=== PATIENT | female | born 1940 | race Caucasian/White ===

== ENCOUNTER 2021-04-22 10:39 | Observation (INO) ==
--- NOTE | 2021-04-22 11:33 | Cat Scan Report ---
INDICATION: alter mental status COMPARISON: Previous examination dated 04/19/2021 TECHNIQUE: Axial noncontrast-enhanced images through the brain. Sagittally and coronally reformatted images. FINDINGS: Cerebral hemispheres:Negative. No intra-axial abnormality. No intra-axial hematoma. No localized mass effect.Brain volume is within normal limits for age. Periventricular white matter is unremarkable and within normal limits for age Brainstem and cerebellum:No intra-axial abnormality Extra-axial:No acute hemorrhage. No subdural or epidural hematoma. No subarachnoid hemorrhage. Basilar cisterns are normal Calvarial:No calvarial fracture. No lytic lesion Temporal bones are negative. No destructive lesions Soft tissue, orbits, sinuses:Orbits and visualized facial soft tissues and paranasal sinuses are negative IMPRESSION: 1. Negative noncontrast enhanced brain CT scan 2. No interval change since 04/19/2021 The exam was performed using radiation dose optimization techniques including, but not limited to, automated exposure control, adjustment of the mA and/or kV according to patient size and use of iterative reconstruction technique. Interpreted and Authenticated by: Vimal Troy 04/22/21
--- NOTE | 2021-04-22 11:57 | Emergency Department Note ---
Altered Mental Status HPI General Chief Complaint: Altered Mental Status Stated Complaint: dementia Time Seen by Provider: 04/22/21 10:56 Source: family Mode of arrival: ambulatory Limitations: altered mental status History of Present Illness HPI Narrative: Narrative: 81 yo F w/ h/o HTN, and recent Dx of COVID19 and UTI p/w ALOC. I saw this patient a few days ago. She presented for ALOC at that time, and had unfortunately just suffered through the of her . She was being cared for by her son who lives in the house, and who had come down w/ COVID. At that time she was Dx'd w/ COVID19, however family did not want any Tx for that such as MAB Tx. She was also Dx'd w/ a UTI. We considered placement vs discharge w/ family. Family arrived and did not want placement and reported that they would be able to take care of her at home. At this time she presents w/ family (unclear who, they are not here w/ her) reporting that her son is not caring for her, she is not eating/drinking, and she has been driving around looking for her . The RN states that it seems that she has only had one dose of abx since leaving the ED. [place] family has already stated to the RN that they do not want her admitted as they think the government will accuse them of not taking care of them. A family member is on the way here from out of town and should arrive later this afternoon. The patient herself has no complaints other than bereavement. Related Data Previous Rx's Medication Instructions Recorded propranolol 10 mg tablet 10 mg PO TID #90 tab 04/14/21 cephalexin 500 mg capsule 500 mg PO BID #14 cap 04/19/21 lorazepam 0.5 mg tablet 0.5 mg PO TID PRN #20 tab 04/21/21 Allergies Allergy/AdvReac Type Severity Reaction Status Date / Time levofloxacin [From Levaquin] Allergy Unknown Unknown Verified 04/19/21 05:27 morphine Allergy Unknown Unknown Verified 04/19/21 05:27 hydrocodone AdvReac Vomiting Verified 04/19/21 05:27 meperidine [From Demerol] AdvReac Vomiting Verified 04/19/21 05:27 oxycodone [Oxycodone] AdvReac Vomiting Verified 04/19/21 05:27 Review of Systems ROS ROS Narrative: Narrative: All systems ED: reviewed and negative except as stated. [facility] Narrative Patient History Narrative: Narrative: Medical/Surgical/Family History All Active Problems (Updated 04/22/21 @ 16:48 by Magdy Crawford MD) Carotid body tumor (Acute) Acute UTI (Acute) COVID-19 (Acute) Generalized weakness (Acute) Acute delirium (Acute) Acute UTI (Acute) Grieving (Acute) COVID (Acute) COVID-19 (Acute) Medicare annual wellness visit, initial (Acute) Rash (Acute) UTI (urinary tract infection) (Acute) Acute diarrhea (Acute) UTI (urinary tract infection) (Acute) Urinary tract infection (Acute) Dilated bile duct (Acute) Side effect of medication (Acute) Nausea (Acute) S/P tooth extraction (Acute) Heart murmur (Acute) Gastritis (Acute) Leg pain, central (Acute) GERD (gastroesophageal reflux disease) (Acute) Pain in left lower leg (Acute) Left hip pain (Acute) Leg pain (Acute) Sciatica (Acute) Epistaxis (Acute) Dementia (Acute) Epistaxis, recurrent (Acute) Gastroenteritis (Acute) Cough (Acute) Neck mass (Acute) Diarrhea (Acute) Abdominal pain (Acute) Melena (Acute) Systolic murmur (Acute) Frequent urination (Chronic) Headache (Acute) Hypertensive urgency (Acute) Migraine headache (Chronic) Confusion (Chronic) Sinusitis, acute (Acute) Tonsillitis and adenoiditis, chronic (Chronic) Impacted cerumen (Chronic) Rhinitis, allergic (Chronic) Depression (Chronic) Urinary incontinence, urge (Chronic 10/31/12) Urinary incontinence (Chronic) Overactive bladder (Chronic 10/31/12) Incomplete bladder emptying (Chronic) Hypertonicity of bladder (Chronic) Essential hypertension (Chronic) Cystocele, midline (Chronic) Migraine (Chronic) Chronic headache (Chronic) Medical History Chronic headache Cystocele, midline Depression Essential hypertension Frequent urination Gallbladder problem removed Gastroenteritis Headache Hypertensive urgency Incomplete bladder emptying Medicare annual wellness visit, initial Migraine headache Overactive bladder (10/31/12) Rhinitis, allergic Tonsillitis and adenoiditis, chronic Urinary incontinence Surgical History History of appendectomy History of bladder surgery Bladder sling History of cholecystectomy History of hysterectomy Status post surgery Cystocele repair Family History Mother Arthritis Sister Migraine Father Malignant neoplasm of prostate Social History Smoking Status: Never smoker Alcohol Intake Frequency: does not drink Substance Use: does not use Exam Narrative Narrative: Narrative: General Limitations: altered mental status General appearance: Present alert and in no apparent distress Head Head: Present atraumatic and normocephalic Eye Eye: Present normal appearance ENT ENT: Present normal oropharynx and mucous membranes dry Chest Chest: Present normal inspection and symmetric chest wall rise Respiratory Respiratory: Present normal lung sounds bilaterally; Absent respiratory distress, rales/crackles, wheezes or stridor Cardiovascular Cardiovascular: Present regular rate, normal rhythm, +S1, +S2 and other (2+ B/L radial pulses); Absent systolic murmur or diastolic murmur Adbominal Abdominal: Present soft and normal bowel sounds; Absent distention or tenderness Extremities Extremities: Absent pedal edema Neurological Neurological: Present alert and oriented X3 Psychiatric Psychiatric: Present normal affect and normal mood Skin Skin: Present warm (WNL) and dry Course Vital Signs Vital signs: Vital Signs Temperature 98.9 F 04/22/21 10:41 Pulse Rate 78 04/22/21 10:41 Respiratory Rate 16 04/22/21 10:41 Blood Pressure 148/71 04/22/21 10:41 Pulse Oximetry (%) 96 04/22/21 10:41 Temperature 98.9 F 04/22/21 10:41 Pulse Rate 70 04/22/21 13:36 Respiratory Rate 18 04/22/21 13:36 Blood Pressure 118/90 04/22/21 15:02 Pulse Oximetry (%) 91 04/22/21 14:32 MDM MDM Narrative Medical decision making narrative: Narrative: 81 yo F w/ h/o COVID19 and UTI Dx a few days ago, along w/ bereavement d/t the recent of her , and h/o HTN, p/w ALOC. DDx - CVA, infectious process, metabolic/electrolyte d/o, endocrine d/o Pt presented clinically stable, in NAD. She had no focal deficits on exam and CVA was unlikely. To be thorough I did check a CT head which was also negative. She had no fever, leukocytosis, and a normal lactate. Her repeat UA showed no UTI. While she had apparently been off of abx, she had not progressed to sepsis from her UTI. There was no evidence of complication from COVID. Her CMP showed no serious metabolic/electrolyte d/o. Her CBC did show anemia, but hemoccult was negative and there was no evidence of active bleeding. TSH was WNL. Overall evaluation was c/w dementia, likely worsened by combination of bereavement, UTI and COVID19. I did not see an indication for hospitalization. Case management was able to discuss further w/ the family. They had misunderstood and thought that she was at risk of being permanently institutionalized for some reason. At this time a cousin is en route from [place], and will be staying in the house w/ her to care for her. They will also be working on removing the son from the home. At this time DC home is re asonable pending arrival of the family member. I have signed pt out to the night physician pending family member arrival. Lab Data Result diagrams: 04/22/21 11:37 04/22/21 11:37 Labs: Lab Results 04/22/21 04/22/21 04/22/21 Range/Units 11:37 11:37 11:37 WBC 4.4 L (4.5-11.0) K/mcL RBC 2.99 L (3.59-5.38) M/mcL Hgb 8.4 L (11.2-15.7) g/dL Hct 25.0 L (34.1-44.9) % MCV 83.6 (80.0-100.0) fL MCH 28.1 (26.0-34.0) pg MCHC 33.6 (31.0-36.0) g/dL RDW 15.1 H (11.5-14.5) % Plt Count 185 (140-440) K/mcL MPV 10.4 (7.4-10.4) fL Neut % (Auto) 52.7 (38.0-78.0) % Lymph % (Auto) 32.6 (15.5-49.0) % [place] % (Auto) 13.8 H (1.0-12.0) % Eos % (Auto) 0.7 (0.0-7.0) % Baso % (Auto) 0.2 (0.0-2.0) % Lymph # (Auto) 1.42 L (1.50-4.80) K/mcL [place] # (Auto) 0.60 (0.10-0.90) K/mcL Eos # (Auto) 0.03 (0.00-0.70) K/mcL Baso # (Auto) 0.01 (0.00-0.30) K/mcL Absolute Neutrophils 2.30 (1.80-8.00) K/mcL VBG Lactic Acid (0.5-2.0) mmol/L Sodium 133 (133-145) mmol/L Potassium 3.2 L (3.3-5.1) mmol/L Chloride 96 (96-108) mmol/L Carbon Dioxide 23 (22-30) mmol/L Anion Gap 14.0 (8.0-16.0) BUN 12 (8-23) mg/dL Creatinine 1.0 (0.6-1.1) mg/dL GFR Calculation 52 Glucose 103 (70-105) mg/dL Calcium 8.3 L (8.6-10.4) mg/dL Total Bilirubin 0.7 (0.1-1.0) mg/dL AST 20 (<32) U/L ALT 16 (<40) U/L Alkaline Phosphatase 69 (39-117) U/L Ammonia (11-51) umol/L Total Creatine Kinase 196 H (24-170) U/L Troponin T 0.02 (<0.03) ng/mL Total Protein 7.3 (5.9-8.4) gm/dL Albumin 3.9 (3.2-5.2) gm/dL Globulin 3.4 (2.2-3.7) gm/dL Albumin/Globulin Ratio 1.1 (1.0-2.3) TSH (0.27-5.01) uIU/mL Thyroxine (T4) (5.0-12.0) ug/dl Urine Color Urine Appearance (Clear) Urine pH (5.0-9.0) Ur Specific [place] (1.000-1.035) Urine Protein (Negative) mg/dL Urine Glucose (UA) (Negative) mg/dL Urine Ketones (Negative) mg/dL Urine Occult Blood (Negative) mg/dL Urine Nitrate (Negative) Urine Bilirubin (Negative) mg/dL Urine Urobilinogen mg/dL Ur Leukocyte Esterase (Negative) /uL Urine RBC (0-3) /hpf Urine WBC (0-4) /hpf Ur Squamous Epith Cells (0-4) /hpf Urine Bacteria (0) /hpf Urine Mucus (None) /hpf Ur Culture Indicated? Urine Opiates Screen Ur Opiates Confirm Ur Oxycodone Screen Urine Methadone Screen Ur Methadone Confirm Acetaminophen ug/mL Ur Barbiturates Screen Ur Barbiturate Confirm Ur Phencyclidine Scrn Urine PCP Confirm Ur Amphetamines Screen U Amphetamines Confirm U Benzodiazepines Scrn U Benzodiazepine Confm Urine Cocaine Screen Urine Cocaine Confirm U Cannabinoids Confirm U Marijuana (THC) Screen Ethyl Alcohol 04/22/21 04/22/21 04/22/21 Range/Units 11:37 11:37 11:37 WBC (4.5-11.0) K/mcL RBC (3.59-5.38) M/mcL Hgb (11.2-15.7) g/dL Hct (34.1-44.9) % MCV (80.0-100.0) fL MCH (26.0-34.0) pg MCHC (31.0-36.0) g/dL RDW (11.5-14.5) % Plt Count (140-440) K/mcL MPV (7.4-10.4) fL Neut % (Auto) (38.0-78.0) % Lymph % (Auto) (15.5-49.0) % [place] % (Auto) (1.0-12.0) % Eos % (Auto) (0.0-7.0) % Baso % (Auto) (0.0-2.0) % Lymph # (Auto) (1.50-4.80) K/mcL [place] # (Auto) (0.10-0.90) K/mcL Eos # (Auto) (0.00-0.70) K/mcL Baso # (Auto) (0.00-0.30) K/mcL Absolute Neutrophils (1.80-8.00) K/mcL VBG Lactic Acid (0.5-2.0) mmol/L Sodium (133-145) mmol/L Potassium (3.3-5.1) mmol/L Chloride (96-108) mmol/L Carbon Dioxide (22-30) mmol/L Anion Gap (8.0-16.0) BUN (8-23) mg/dL Creatinine (0.6-1.1) mg/dL GFR Calculation Glucose (70-105) mg/dL Calcium (8.6-10.4) mg/dL Total Bilirubin (0.1-1.0) mg/dL AST (<32) U/L ALT (<40) U/L Alkaline Phosphatase (39-117) U/L Ammonia (11-51) umol/L Total Creatine Kinase (24-170) U/L Troponin T (<0.03) ng/mL Total Protein (5.9-8.4) gm/dL Albumin (3.2-5.2) gm/dL Globulin (2.2-3.7) gm/dL Albumin/Globulin Ratio (1.0-2.3) TSH 0.96 (0.27-5.01) uIU/mL Thyroxine (T4) 6.5 (5.0-12.0) ug/dl Urine Color Urine Appearance (Clear) Urine pH (5.0-9.0) Ur Specific [place] (1.000-1.035) Urine Protein (Negative) mg/dL Urine Glucose (UA) (Negative) mg/dL Urine Ketones (Negative) mg/dL Urine Occult Blood (Negative) mg/dL Urine Nitrate (Negative) Urine Bilirubin (Negative) mg/dL Urine Urobilinogen mg/dL Ur Leukocyte Esterase (Negative) /uL Urine RBC (0-3) /hpf Urine WBC (0-4) /hpf Ur Squamous Epith Cells (0-4) /hpf Urine Bacteria (0) /hpf Urine Mucus (None) /hpf Ur Culture Indicated? Urine Opiates Screen Ur Opiates Confirm Ur Oxycodone Screen Urine Methadone Screen Ur Methadone Confirm Acetaminophen < 5.0 ug/mL Ur Barbiturates Screen Ur Barbiturate Confirm Ur Phencyclidine Scrn Urine PCP Confirm Ur Amphetamines Screen U Amphetamines Confirm U Benzodiazepines Scrn U Benzodiazepine Confm Urine Cocaine Screen Urine Cocaine Confirm U Cannabinoids Confirm U Marijuana (THC) Screen Ethyl Alcohol Cancelled < 0.010 04/22/21 04/22/21 04/22/21 Range/Units 12:15 12:15 12:35 WBC (4.5-11.0) K/mcL RBC (3.59-5.38) M/mcL Hgb (11.2-15.7) g/dL Hct (34.1-44.9) % MCV (80.0-100.0) fL MCH (26.0-34.0) pg MCHC (31.0-36.0) g/dL RDW (11.5-14.5) % Plt Count (140-440) K/mcL MPV (7.4-10.4) fL Neut % (Auto) (38.0-78.0) % Lymph % (Auto) (15.5-49.0) % [place] % (Auto) (1.0-12.0) % Eos % (Auto) (0.0-7.0) % Baso % (Auto) (0.0-2.0) % Lymph # (Auto) (1.50-4.80) K/mcL [place] # (Auto) (0.10-0.90) K/mcL Eos # (Auto) (0.00-0.70) K/mcL Baso # (Auto) (0.00-0.30) K/mcL Absolute Neutrophils (1.80-8.00) K/mcL VBG Lactic Acid 1.0 (0.5-2.0) mmol/L Sodium (133-145) mmol/L Potassium (3.3-5.1) mmol/L Chloride (96-108) mmol/L Carbon Dioxide (22-30) mmol/L Anion Gap (8.0-16.0) BUN (8-23) mg/dL Creatinine (0.6-1.1) mg/dL GFR Calculation Glucose (70-105) mg/dL Calcium (8.6-10.4) mg/dL Total Bilirubin (0.1-1.0) mg/dL AST (<32) U/L ALT (<40) U/L Alkaline Phosphatase (39-117) U/L Ammonia (11-51) umol/L Total Creatine Kinase (24-170) U/L Troponin T (<0.03) ng/mL Total Protein (5.9-8.4) gm/dL Albumin (3.2-5.2) gm/dL Globulin (2.2-3.7) gm/dL Albumin/Globulin Ratio (1.0-2.3) TSH (0.27-5.01) uIU/mL Thyroxine (T4) (5.0-12.0) ug/dl Urine Color Yellow Urine Appearance Clear (Clear) Urine pH 6.0 (5.0-9.0) Ur Specific [place] 1.012 (1.000-1.035) Urine Protein 30 A (Negative) mg/dL Urine Glucose (UA) Negative (Negative) mg/dL Urine Ketones Negative (Negative) mg/dL Urine Occult Blood Negative (Negative) mg/dL Urine Nitrate Negative (Negative) Urine Bilirubin Negative (Negative) mg/dL Urine Urobilinogen Negative mg/dL Ur Leukocyte Esterase Negative (Negative) /uL Urine RBC 0 (0-3) /hpf Urine WBC 1 (0-4) /hpf Ur Squamous Epith Cells 4 (0-4) /hpf Urine Bacteria None (0) /hpf Urine Mucus Few A (None) /hpf Ur Culture Indicated? No Urine Opiates Screen None detected Ur Opiates Confirm TNP Ur Oxycodone Screen None detected Urine Methadone Screen None detected Ur Methadone Confirm TNP Acetaminophen ug/mL Ur Barbiturates Screen None detected Ur Barbiturate Confirm TNP Ur Phencyclidine Scrn None detected Urine PCP Confirm TNP Ur Amphetamines Screen None detected U Amphetamines Confirm TNP U Benzodiazepines Scrn None detected U Benzodiazepine Confm TNP Urine Cocaine Screen None detected Urine Cocaine Confirm TNP U Cannabinoids Confirm TNP U Marijuana (THC) Screen None detected Ethyl Alcohol 04/22/21 Range/Units 12:35 WBC (4.5-11.0) K/mcL RBC (3.59-5.38) M/mcL Hgb (11.2-15.7) g/dL Hct (34.1-44.9) % MCV (80.0-100.0) fL MCH (26.0-34.0) pg MCHC (31.0-36.0) g/dL RDW (11.5-14.5) % Plt Count (140-440) K/mcL MPV (7.4-10.4) fL Neut % (Auto) (38.0-78.0) % Lymph % (Auto) (15.5-49.0) % [place] % (Auto) (1.0-12.0) % Eos % (Auto) (0.0-7.0) % Baso % (Auto) (0.0-2.0) % Lymph # (Auto) (1.50-4.80) K/mcL [place] # (Auto) (0.10-0.90) K/mcL Eos # (Auto) (0.00-0.70) K/mcL Baso # (Auto) (0.00-0.30) K/mcL Absolute Neutrophils (1.80-8.00) K/mcL VBG Lactic Acid (0.5-2.0) mmol/L Sodium (133-145) mmol/L Potassium (3.3-5.1) mmol/L Chloride (96-108) mmol/L Carbon Dioxide (22-30) mmol/L Anion Gap (8.0-16.0) BUN (8-23) mg/dL Creatinine (0.6-1.1) mg/dL GFR Calculation Glucose (70-105) mg/dL Calcium (8.6-10.4) mg/dL Total Bilirubin (0.1-1.0) mg/dL AST (<32) U/L ALT (<40) U/L Alkaline Phosphatase (39-117) U/L Ammonia 14 (11-51) umol/L Total Creatine Kinase (24-170) U/L Troponin T (<0.03) ng/mL Total Protein (5.9-8.4) gm/dL Albumin (3.2-5.2) gm/dL Globulin (2.2-3.7) gm/dL Albumin/Globulin Ratio (1.0-2.3) TSH (0.27-5.01) uIU/mL Thyroxine (T4) (5.0-12.0) ug/dl Urine Color Urine Appearance (Clear) Urine pH (5.0-9.0) Ur Specific [place] (1.000-1.035) Urine Protein (Negative) mg/dL Urine Glucose (UA) (Negative) mg/dL Urine Ketones (Negative) mg/dL Urine Occult Blood (Negative) mg/dL Urine Nitrate (Negative) Urine Bilirubin (Negative) mg/dL Urine Urobilinogen mg/dL Ur Leukocyte Esterase (Negative) /uL Urine RBC (0-3) /hpf Urine WBC (0-4) /hpf Ur Squamous Epith Cells (0-4) /hpf Urine Bacteria (0) /hpf Urine Mucus (None) /hpf Ur Culture Indicated? Urine Opiates Screen Ur Opiates Confirm Ur Oxycodone Screen Urine Methadone Screen Ur Methadone Confirm Acetaminophen ug/mL Ur Barbiturates Screen Ur Barbiturate Confirm Ur Phencyclidine Scrn Urine PCP Confirm Ur Amphetamines Screen U Amphetamines Confirm U Benzodiazepines Scrn U Benzodiazepine Confm Urine Cocaine Screen Urine Cocaine Confirm U Cannabinoids Confirm U Marijuana (THC) Screen Ethyl Alcohol EKG Data EKG #1: EKG attestation: Yes I reviewed and interpreted this EKG. and Yes There are no EKG findings of acute coronary syndrome EKG results narrative: Sinus bradycardia w/ rate of 59. Normal RI. QRS 146, QT 508, QTc 504. No STEMI. RBBB present, new from previous EKG in 2019. Discharge Plan Patient/Caregiver Discharge Instructions Pt seen by CROWN BLOCKER/PA only: No Clinical Impression: Acute delirium, Acute UTI, Grieving, COVID, COVID-19 Activity: resume usual activities as tolerated Instructions: COVID-19, Grief and Loss (ED), Acute Delirium (ED), Urinary Tract Infection in Older Adults (ED) Activity Restrictions/Additional Instructions: Thank you for coming to the ER today. You have been seen for confusion. At this time there is no evidence of an emergency that would require admission to the hospital. You can go home in the care of your family. If you have any new, changing, or worsening symptoms, please return to the ER. Otherwise please continue to self isolate, and please continue your antibiotics. Please see your PCP by phone or video in the next 2-3 days. Patient Disposition: Still a Patient Condition: Fair Follow up with: Titi Costello PA-C [Primary Care Provider] - Prescriptions: No Action propranolol 10 mg tablet 10 mg PO TID Qty: 90 3RF lorazepam 0.5 mg tablet 0.5 mg PO TID PRN (Reason: anxiety) Qty: 20 0RF cephalexin 500 mg capsule 500 mg PO BID Qty: 14 0RF
[2021-04-22 12:55] LABS: Basophils # (Auto) 0.01 K/mcL (0.00-0.30); Basophils % (Auto) 0.2 % (0.0-2.0); Eosinophils # (Auto) 0.03 K/mcL (0.00-0.70); Eosinophils % (Auto) 0.7 % (0.0-7.0); Hemoglobin 8.4 g/dL (11.2-15.7); Lymphocytes # (Auto) 1.42 K/mcL (1.50-4.80); Lymphocytes % (Auto) 32.6 % (15.5-49.0); Mean Cell Volume 83.6 fL (80.0-100.0); Mean Corpuscular HGB Conc 33.6 g/dL (31.0-36.0); Mean Platelet Volume 10.4 fL (7.4-10.4); Monocytes % (Auto) 13.8 % (1.0-12.0); Neutrophils % (Auto) 52.7 % (38.0-78.0); Platelet Count 185 K/mcL (140-440); RBC 2.99 M/mcL (3.59-5.38); Red Cell Distribution Width 15.1 % (11.5-14.5); WBC 4.4 K/mcL (4.5-11.0)
[2021-04-22 13:12] LABS: ALT/SGPT 16 U/L (<40); AST/SGOT 20 U/L (<32); Albumin 3.9 gm/dL (3.2-5.2); Albumin/Globulin Ratio 1.1 (1.0-2.3); Alkaline Phosphatase 69 U/L (39-117); Bilirubin,Total 0.7 mg/dL (0.1-1.0); Blood Urea Nitrogen 12 mg/dL (8-23); Calcium 8.3 mg/dL (8.6-10.4); Carbon Dioxide 23 mmol/L (22-30); Chloride 96 mmol/L (96-108); Creatine Kinase 196 U/L (24-170); Globulin 3.4 gm/dL (2.2-3.7); Glomerular Filtration Rate 52; Glucose 103 mg/dL (70-105)
[2021-04-22 13:13] LABS: Acetaminophen < 5.0 ug/mL
[2021-04-22 13:15] LABS: Alcohol, Blood < 10.0 mg/dL; Alcohol,Blood < 0.010 gm/dL (<0.010)
[2021-04-22 13:24] LABS: T4 (Thyroxine) 6.5 ug/dl (5.0-12.0); Thyroid Stimulating Hormone 0.96 uIU/mL (0.27-5.01)
[2021-04-22 15:38] LABS: Amphetamine Screen,Urine None detected; Barbiturate Screen,Urine None detected; Benzodiazepines Screen,Urine None detected; Cannabinoid Screen,Urine None detected; Cocaine Screen,Urine None detected; Opiate Screen,Urine None detected; Oxycodone, Urine Screen None detected; Phencyclidine Screen,Urine None detected
[2021-04-22 15:46] LABS: Appearance,Urine CLEAR (Clear); Bilirubin,Urine Negative (Negative); Color,Urine YELLOW; Culture Indicated,Urine No; Glucose,Urine (UA) Negative (Negative); Ketones,Urine Negative (Negative); Leukocyte Esterase,Urine Negative /uL (Negative); Mucus,Urine FEW /hpf; Nitrate,Urine Negative (Negative); Protein,Urine 30 mg/dL (Negative); Specific Gravity,Urine 1.012 (1.000-1.035); Urine Blood Negative (Negative); Urine RBC 0 /hpf (0-3); Urine Squamous Epithelial Cell 4 /hpf (0-4); Urine WBC 1 /hpf (0-4); Urobilinogen,Urine Negative
[2021-04-22] MEDS ORDERED: LORazepam (PP) 1 MG TABLET (#4) PO ONE (17:23)
[2021-04-22] MEDS ORDERED: LORazepam 1 MG TABLET PO ONE ×2 (17:36→20:15)
[2021-04-22] MEDS ORDERED: CEPHALEXIN 250 MG CAPSULE PO ONE (20:10)
[2021-04-22] MEDS ORDERED: LORazepam 0.5 MG TABLET PO ONE (20:11)
[2021-04-22] MEDS ORDERED: DONEPEZIL 5 MG TABLET PO SCH (21:00)
--- NOTE | 2021-04-22 21:59 | Emergency Department Note ---
HPI General Chief complaint: Altered Mental Status Stated complaint: dementia Time Seen by Provider: 04/22/21 10:56 Source: family Mode of arrival: ambulatory Limitations: altered mental status History of Present Illness HPI Narrative: Narrative: Related Data Previous Rx's Medication Instructions Recorded propranolol 10 mg tablet 10 mg PO TID #90 tab 04/14/21 cephalexin 500 mg capsule 500 mg PO BID #14 cap 04/19/21 lorazepam 0.5 mg tablet 0.5 mg PO TID PRN #20 tab 04/21/21 Allergies Allergy/AdvReac Type Severity Reaction Status Date / Time levofloxacin [From Levaquin] Allergy Unknown Unknown Verified 04/19/21 05:27 morphine Allergy Unknown Unknown Verified 04/19/21 05:27 hydrocodone AdvReac Vomiting Verified 04/19/21 05:27 meperidine [From Demerol] AdvReac Vomiting Verified 04/19/21 05:27 oxycodone [Oxycodone] AdvReac Vomiting Verified 04/19/21 05:27 Review of Systems ROS ROS Narrative: Narrative: [facility] Narrative Patient History Narrative: Narrative: Medical/Surgical/Family History All Active Problems (Updated 04/22/21 @ 22:45 by Colton Pena MD) Anemia, normocytic normochromic (Acute) Hypokalemia (Acute) Alzheimer disease (Acute) Asymptomatic COVID-19 virus infection (Acute) Carotid body tumor (Acute) Acute UTI (Acute) COVID-19 (Acute) Generalized weakness (Acute) Acute delirium (Acute) Acute UTI (Acute) Grieving (Acute) COVID (Acute) COVID-19 (Acute) Medicare annual wellness visit, initial (Acute) Rash (Acute) UTI (urinary tract infection) (Acute) Acute diarrhea (Acute) UTI (urinary tract infection) (Acute) Urinary tract infection (Acute) Dilated bile duct (Acute) Side effect of medication (Acute) Nausea (Acute) S/P tooth extraction (Acute) Heart murmur (Acute) Gastritis (Acute) Leg pain, central (Acute) GERD (gastroesophageal reflux disease) (Acute) Pain in left lower leg (Acute) Left hip pain (Acute) Leg pain (Acute) Sciatica (Acute) Epistaxis (Acute) Dementia (Acute) Epistaxis, recurrent (Acute) Gastroenteritis (Acute) Cough (Acute) Neck mass (Acute) Diarrhea (Acute) Abdominal pain (Acute) Melena (Acute) Systolic murmur (Acute) Frequent urination (Chronic) Headache (Acute) Hypertensive urgency (Acute) Migraine headache (Chronic) Confusion (Chronic) Sinusitis, acute (Acute) Tonsillitis and adenoiditis, chronic (Chronic) Impacted cerumen (Chronic) Rhinitis, allergic (Chronic) Depression (Chronic) Urinary incontinence, urge (Chronic 10/31/12) Urinary incontinence (Chronic) Overactive bladder (Chronic 10/31/12) Incomplete bladder emptying (Chronic) Hypertonicity of bladder (Chronic) Essential hypertension (Chronic) Cystocele, midline (Chronic) Migraine (Chronic) Chronic headache (Chronic) Medical History Chronic headache Cystocele, midline Depression Essential hypertension Frequent urination Gallbladder problem removed Gastroenteritis Headache Hypertensive urgency Incomplete bladder emptying Medicare annual wellness visit, initial Migraine headache Overactive bladder (10/31/12) Rhinitis, allergic Tonsillitis and adenoiditis, chronic Urinary incontinence Surgical History History of appendectomy History of bladder surgery Bladder sling History of cholecystectomy History of hysterectomy Status post surgery Cystocele repair Family History Mother Arthritis Sister Migraine Father Malignant neoplasm of prostate Social History Smoking Status: Never smoker Alcohol Intake Frequency: does not drink Substance Use: does not use Exam Narrative Narrative: Narrative: General Limitations: altered mental status Course Vital Signs Vital signs: Vital Signs Temperature 98.9 F 04/22/21 10:41 Pulse Rate 78 04/22/21 10:41 Respiratory Rate 16 04/22/21 10:41 Blood Pressure 148/71 04/22/21 10:41 Pulse Oximetry (%) 96 04/22/21 10:41 Temperature 97.9 F 04/23/21 03:30 Pulse Rate 60 04/23/21 03:30 Respiratory Rate 18 04/23/21 03:30 Blood Pressure 161/88 04/23/21 03:30 Pulse Oximetry (%) 95 04/23/21 03:30 MDM MDM Narrative Medical decision making narrative: Narrative: Patient is a an 81-year-old female who presented with chief complaint of altered mental status. Patient was signed out to me by Dr. Crawford, and I agree with the work-up and plan thus far. Patient been seen here multiple times in the past 2 days for similar symptoms and including Covid positive and UTI. In brief patient was brought in again due to being found driving around aimlessly looking for her who just recently from [place]. She was supposed to be under the care of her son who is also Covid positive and does not appear to be taking care of her. She was not being given her antibiotics for urinary tract infection, and it sounded like other family members were very upset with the situation. Patient was held here throughout most of the day as family members from multiple places were attempted to come from multiple states to help several situation at home and take care of the patient. Unfortunately after approximately 11 hours all for members have called her stating that they would not be able to make it. The nearest one of them can potentially make it is potentially Sunday the earliest. Because of this, though the patient is stable with vital signs and overall physical exam appears to be unremarkable outside of her dementia/delirium, I do feel that she would benefit from admission to the hospital until patient can be placed appropriately into a safer living situation and continue to be treated for her urinary tract infection as well. I discussed case the hospitalist who agreed to the plan of admission at this time. Lab Data Result diagrams: 04/22/21 11:37 04/22/21 11:37 Labs: Lab Results 04/22/21 04/22/21 04/22/21 Range/Units 11:37 11:37 11:37 WBC 4.4 L (4.5-11.0) K/mcL RBC 2.99 L (3.59-5.38) M/mcL Hgb 8.4 L (11.2-15.7) g/dL Hct 25.0 L (34.1-44.9) % MCV 83.6 (80.0-100.0) fL MCH 28.1 (26.0-34.0) pg MCHC 33.6 (31.0-36.0) g/dL RDW 15.1 H (11.5-14.5) % Plt Count 185 (140-440) K/mcL MPV 10.4 (7.4-10.4) fL Neut % (Auto) 52.7 (38.0-78.0) % Lymph % (Auto) 32.6 (15.5-49.0) % [place] % (Auto) 13.8 H (1.0-12.0) % Eos % (Auto) 0.7 (0.0-7.0) % Baso % (Auto) 0.2 (0.0-2.0) % Lymph # (Auto) 1.42 L (1.50-4.80) K/mcL [place] # (Auto) 0.60 (0.10-0.90) K/mcL Eos # (Auto) 0.03 (0.00-0.70) K/mcL Baso # (Auto) 0.01 (0.00-0.30) K/mcL Absolute Neutrophils 2.30 (1.80-8.00) K/mcL VBG Lactic Acid (0.5-2.0) mmol/L Sodium 133 (133-145) mmol/L Potassium 3.2 L (3.3-5.1) mmol/L Chloride 96 (96-108) mmol/L Carbon Dioxide 23 (22-30) mmol/L Anion Gap 14.0 (8.0-16.0) BUN 12 (8-23) mg/dL Creatinine 1.0 (0.6-1.1) mg/dL GFR Calculation 52 Glucose 103 (70-105) mg/dL Calcium 8.3 L (8.6-10.4) mg/dL Total Bilirubin 0.7 (0.1-1.0) mg/dL AST 20 (<32) U/L ALT 16 (<40) U/L Alkaline Phosphatase 69 (39-117) U/L Ammonia (11-51) umol/L Total Creatine Kinase 196 H (24-170) U/L Troponin T 0.02 (<0.03) ng/mL Total Protein 7.3 (5.9-8.4) gm/dL Albumin 3.9 (3.2-5.2) gm/dL Globulin 3.4 (2.2-3.7) gm/dL Albumin/Globulin Ratio 1.1 (1.0-2.3) TSH (0.27-5.01) uIU/mL Thyroxine (T4) (5.0-12.0) ug/dl Urine Color Urine Appearance (Clear) Urine pH (5.0-9.0) Ur Specific [place] (1.000-1.035) Urine Protein (Negative) mg/dL Urine Glucose (UA) (Negative) mg/dL Urine Ketones (Negative) mg/dL Urine Occult Blood (Negative) mg/dL Urine Nitrate (Negative) Urine Bilirubin (Negative) mg/dL Urine Urobilinogen mg/dL Ur Leukocyte Esterase (Negative) /uL Urine RBC (0-3) /hpf Urine WBC (0-4) /hpf Ur Squamous Epith Cells (0-4) /hpf Urine Bacteria (0) /hpf Urine Mucus (None) /hpf Ur Culture Indicated? Urine Opiates Screen Ur Opiates Confirm Ur Oxycodone Screen Urine Methadone Screen Ur Methadone Confirm Acetaminophen ug/mL Ur Barbiturates Screen Ur Barbiturate Confirm Ur Phencyclidine Scrn Urine PCP Confirm Ur Amphetamines Screen U Amphetamines Confirm U Benzodiazepines Scrn U Benzodiazepine Confm Urine Cocaine Screen Urine Cocaine Confirm U Cannabinoids Confirm U Marijuana (THC) Screen Ethyl Alcohol 04/22/21 04/22/21 04/22/21 Range/Units 11:37 11:37 11:37 WBC (4.5-11.0) K/mcL RBC (3.59-5.38) M/mcL Hgb (11.2-15.7) g/dL Hct (34.1-44.9) % MCV (80.0-100.0) fL MCH (26.0-34.0) pg MCHC (31.0-36.0) g/dL RDW (11.5-14.5) % Plt Count (140-440) K/mcL MPV (7.4-10.4) fL Neut % (Auto) (38.0-78.0) % Lymph % (Auto) (15.5-49.0) % [place] % (Auto) (1.0-12.0) % Eos % (Auto) (0.0-7.0) % Baso % (Auto) (0.0-2.0) % Lymph # (Auto) (1.50-4.80) K/mcL [place] # (Auto) (0.10-0.90) K/mcL Eos # (Auto) (0.00-0.70) K/mcL Baso # (Auto) (0.00-0.30) K/mcL Absolute Neutrophils (1.80-8.00) K/mcL VBG Lactic Acid (0.5-2.0) mmol/L Sodium (133-145) mmol/L Potassium (3.3-5.1) mmol/L Chloride (96-108) mmol/L Carbon Dioxide (22-30) mmol/L Anion Gap (8.0-16.0) BUN (8-23) mg/dL Creatinine (0.6-1.1) mg/dL GFR Calculation Glucose (70-105) mg/dL Calcium (8.6-10.4) mg/dL Total Bilirubin (0.1-1.0) mg/dL AST (<32) U/L ALT (<40) U/L Alkaline Phosphatase (39-117) U/L Ammonia (11-51) umol/L Total Creatine Kinase (24-170) U/L Troponin T (<0.03) ng/mL Total Protein (5.9-8.4) gm/dL Albumin (3.2-5.2) gm/dL Globulin (2.2-3.7) gm/dL Albumin/Globulin Ratio (1.0-2.3) TSH 0.96 (0.27-5.01) uIU/mL Thyroxine (T4) 6.5 (5.0-12.0) ug/dl Urine Color Urine Appearance (Clear) Urine pH (5.0-9.0) Ur Specific [place] (1.000-1.035) Urine Protein (Negative) mg/dL Urine Glucose (UA) (Negative) mg/dL Urine Ketones (Negative) mg/dL Urine Occult Blood (Negative) mg/dL Urine Nitrate (Negative) Urine Bilirubin (Negative) mg/dL Urine Urobilinogen mg/dL Ur Leukocyte Esterase (Negative) /uL Urine RBC (0-3) /hpf Urine WBC (0-4) /hpf Ur Squamous Epith Cells (0-4) /hpf Urine Bacteria (0) /hpf Urine Mucus (None) /hpf Ur Culture Indicated? Urine Opiates Screen Ur Opiates Confirm Ur Oxycodone Screen Urine Methadone Screen Ur Methadone Confirm Acetaminophen < 5.0 ug/mL Ur Barbiturates Screen Ur Barbiturate Confirm Ur Phencyclidine Scrn Urine PCP Confirm Ur Amphetamines Screen U Amphetamines Confirm U Benzodiazepines Scrn U Benzodiazepine Confm Urine Cocaine Screen Urine Cocaine Confirm U Cannabinoids Confirm U Marijuana (THC) Screen Ethyl Alcohol Cancelled < 0.010 04/22/21 04/22/21 04/22/21 Range/Units 12:15 12:15 12:35 WBC (4.5-11.0) K/mcL RBC (3.59-5.38) M/mcL Hgb (11.2-15.7) g/dL Hct (34.1-44.9) % MCV (80.0-100.0) fL MCH (26.0-34.0) pg MCHC (31.0-36.0) g/dL RDW (11.5-14.5) % Plt Count (140-440) K/mcL MPV (7.4-10.4) fL Neut % (Auto) (38.0-78.0) % Lymph % (Auto) (15.5-49.0) % [place] % (Auto) (1.0-12.0) % Eos % (Auto) (0.0-7.0) % Baso % (Auto) (0.0-2.0) % Lymph # (Auto) (1.50-4.80) K/mcL [place] # (Auto) (0.10-0.90) K/mcL Eos # (Auto) (0.00-0.70) K/mcL Baso # (Auto) (0.00-0.30) K/mcL Absolute Neutrophils (1.80-8.00) K/mcL VBG Lactic Acid 1.0 (0.5-2.0) mmol/L Sodium (133-145) mmol/L Potassium (3.3-5.1) mmol/L Chloride (96-108) mmol/L Carbon Dioxide (22-30) mmol/L Anion Gap (8.0-16.0) BUN (8-23) mg/dL Creatinine (0.6-1.1) mg/dL GFR Calculation Glucose (70-105) mg/dL Calcium (8.6-10.4) mg/dL Total Bilirubin (0.1-1.0) mg/dL AST (<32) U/L ALT (<40) U/L Alkaline Phosphatase (39-117) U/L Ammonia (11-51) umol/L Total Creatine Kinase (24-170) U/L Troponin T (<0.03) ng/mL Total Protein (5.9-8.4) gm/dL Albumin (3.2-5.2) gm/dL Globulin (2.2-3.7) gm/dL Albumin/Globulin Ratio (1.0-2.3) TSH (0.27-5.01) uIU/mL Thyroxine (T4) (5.0-12.0) ug/dl Urine Color Yellow Urine Appearance Clear (Clear) Urine pH 6.0 (5.0-9.0) Ur Specific [place] 1.012 (1.000-1.035) Urine Protein 30 A (Negative) mg/dL Urine Glucose (UA) Negative (Negative) mg/dL Urine Ketones Negative (Negative) mg/dL Urine Occult Blood Negative (Negative) mg/dL Urine Nitrate Negative (Negative) Urine Bilirubin Negative (Negative) mg/dL Urine Urobilinogen Negative mg/dL Ur Leukocyte Esterase Negative (Negative) /uL Urine RBC 0 (0-3) /hpf Urine WBC 1 (0-4) /hpf Ur Squamous Epith Cells 4 (0-4) /hpf Urine Bacteria None (0) /hpf Urine Mucus Few A (None) /hpf Ur Culture Indicated? No Urine Opiates Screen None detected Ur Opiates Confirm TNP Ur Oxycodone Screen None detected Urine Methadone Screen None detected Ur Methadone Confirm TNP Acetaminophen ug/mL Ur Barbiturates Screen None detected Ur Barbiturate Confirm TNP Ur Phencyclidine Scrn None detected Urine PCP Confirm TNP Ur Amphetamines Screen None detected U Amphetamines Confirm TNP U Benzodiazepines Scrn None detected U Benzodiazepine Confm TNP Urine Cocaine Screen None detected Urine Cocaine Confirm TNP U Cannabinoids Confirm TNP U Marijuana (THC) Screen None detected Ethyl Alcohol 04/22/21 Range/Units 12:35 WBC (4.5-11.0) K/mcL RBC (3.59-5.38) M/mcL Hgb (11.2-15.7) g/dL Hct (34.1-44.9) % MCV (80.0-100.0) fL MCH (26.0-34.0) pg MCHC (31.0-36.0) g/dL RDW (11.5-14.5) % Plt Count (140-440) K/mcL MPV (7.4-10.4) fL Neut % (Auto) (38.0-78.0) % Lymph % (Auto) (15.5-49.0) % [place] % (Auto) (1.0-12.0) % Eos % (Auto) (0.0-7.0) % Baso % (Auto) (0.0-2.0) % Lymph # (Auto) (1.50-4.80) K/mcL [place] # (Auto) (0.10-0.90) K/mcL Eos # (Auto) (0.00-0.70) K/mcL Baso # (Auto) (0.00-0.30) K/mcL Absolute Neutrophils (1.80-8.00) K/mcL VBG Lactic Acid (0.5-2.0) mmol/L Sodium (133-145) mmol/L Potassium (3.3-5.1) mmol/L Chloride (96-108) mmol/L Carbon Dioxide (22-30) mmol/L Anion Gap (8.0-16.0) BUN (8-23) mg/dL Creatinine (0.6-1.1) mg/dL GFR Calculation Glucose (70-105) mg/dL Calcium (8.6-10.4) mg/dL Total Bilirubin (0.1-1.0) mg/dL AST (<32) U/L ALT (<40) U/L Alkaline Phosphatase (39-117) U/L Ammonia 14 (11-51) umol/L Total Creatine Kinase (24-170) U/L Troponin T (<0.03) ng/mL Total Protein (5.9-8.4) gm/dL Albumin (3.2-5.2) gm/dL Globulin (2.2-3.7) gm/dL Albumin/Globulin Ratio (1.0-2.3) TSH (0.27-5.01) uIU/mL Thyroxine (T4) (5.0-12.0) ug/dl Urine Color Urine Appearance (Clear) Urine pH (5.0-9.0) Ur Specific [place] (1.000-1.035) Urine Protein (Negative) mg/dL Urine Glucose (UA) (Negative) mg/dL Urine Ketones (Negative) mg/dL Urine Occult Blood (Negative) mg/dL Urine Nitrate (Negative) Urine Bilirubin (Negative) mg/dL Urine Urobilinogen mg/dL Ur Leukocyte Esterase (Negative) /uL Urine RBC (0-3) /hpf Urine WBC (0-4) /hpf Ur Squamous Epith Cells (0-4) /hpf Urine Bacteria (0) /hpf Urine Mucus (None) /hpf Ur Culture Indicated? Urine Opiates Screen Ur Opiates Confirm Ur Oxycodone Screen Urine Methadone Screen Ur Methadone Confirm Acetaminophen ug/mL Ur Barbiturates Screen Ur Barbiturate Confirm Ur Phencyclidine Scrn Urine PCP Confirm Ur Amphetamines Screen U Amphetamines Confirm U Benzodiazepines Scrn U Benzodiazepine Confm Urine Cocaine Screen Urine Cocaine Confirm U Cannabinoids Confirm U Marijuana (THC) Screen Ethyl Alcohol Discharge Plan Patient/Caregiver Discharge Instructions Pt seen by LINE LEADER/PA only: No Clinical Impression: Acute delirium, Acute UTI, Grieving, COVID, COVID-19 Activity: resume usual activities as tolerated Patient Disposition: Xfer As Outpt/Obs ([facility]) Condition: Fair Discharge Date/Time: 04/22/21 22:49
--- NOTE | 2021-04-22 22:47 | Internal Med History&Physical ---
HPI History of Present Illness Patient information: Note initiated : 04/22/21 at 10:41 pm Service Date, if different from initiated Date: [] Patient: Manasa Pinon a 81 y/o F admitted on for dementia. Chief Complaint: [confusion] History of present illness: Ms. Pinon is a 81 year old F history of asthma dementia, being dropped by family member to the ER because no one was able to take care of her at home. Her recently . Patient is also tested positive for Covid pneumonia. She has no symptoms for Covid pneumonia though and she is tolerating room air fine with no increased work of breathing. No cough or wheezing at a ll. No fever or chills at all. No urinary symptoms whatsoever such as increased urinary frequency urgency or dysuria. Except for mild anemia and hypokalemia, all the labs were within normal limits as well. Patient with at time before confused but at other time was totally intact. Admission request asked due to family unable to take patient's back home and provide her with a safe placement. Constitutional Constitutional: Absent chills, excessive sweating, fatigue, fever(s) or weakness EENT Eyes: Absent blurry vision, change in vision, loss of vision or other visual disturbances Ears: Absent decreased hearing or tinnitus Nose, mouth and throat: Absent abnormal hearing, dry mouth, headache(s), nasal congestion or sore throat Cardiovascular Cardiovascular: Absent chest pain, chest pain at rest, edema, irregular heart rhythm or palpatations Respiratory Respiratory: Absent cough, dyspnea or wheezing Gastrointestinal Gastrointestinal: Absent abdominal pain, constipation, diarrhea, nausea or vomiting Musculoskeletal Musculoskeletal: Absent back pain, deformity, limited range of motion, muscle cramps, muscle weakness or numbness Integumentary Integumentary: Absent lesions, rash or wounds Neurological Neurological: Absent focal weakness, headache(s) or numbness Psychiatric Psychiatric: Absent anxiety, depression or hallucinations PFSH PFSH All Active Problems (Updated 04/22/21 @ 22:45 by Colton Pena MD) Anemia, normocytic normochromic (Acute) Hypokalemia (Acute) Alzheimer disease (Acute) Asymptomatic COVID-19 virus infection (Acute) Carotid body tumor (Acute) Acute UTI (Acute) COVID-19 (Acute) Generalized weakness (Acute) Acute delirium (Acute) Acute UTI (Acute) Grieving (Acute) COVID (Acute) COVID-19 (Acute) Medicare annual wellness visit, initial (Acute) Rash (Acute) UTI (urinary tract infection) (Acute) Acute diarrhea (Acute) UTI (urinary tract infection) (Acute) Urinary tract infection (Acute) Dilated bile duct (Acute) Side effect of medication (Acute) Nausea (Acute) S/P tooth extraction (Acute) Heart murmur (Acute) Gastritis (Acute) Leg pain, central (Acute) GERD (gastroesophageal reflux disease) (Acute) Pain in left lower leg (Acute) Left hip pain (Acute) Leg pain (Acute) Sciatica (Acute) Epistaxis (Acute) Dementia (Acute) Epistaxis, recurrent (Acute) Gastroenteritis (Acute) Cough (Acute) Neck mass (Acute) Diarrhea (Acute) Abdominal pain (Acute) Melena (Acute) Systolic murmur (Acute) Frequent urination (Chronic) Headache (Acute) Hypertensive urgency (Acute) Migraine headache (Chronic) Confusion (Chronic) Sinusitis, acute (Acute) Tonsillitis and adenoiditis, chronic (Chronic) Impacted cerumen (Chronic) Rhinitis, allergic (Chronic) Depression (Chronic) Urinary incontinence, urge (Chronic 10/31/12) Urinary incontinence (Chronic) Overactive bladder (Chronic 10/31/12) Incomplete bladder emptying (Chronic) Hypertonicity of bladder (Chronic) Essential hypertension (Chronic) Cystocele, midline (Chronic) Migraine (Chronic) Chronic headache (Chronic) Medical History Chronic headache Cystocele, midline Depression Essential hypertension Frequent urination Gallbladder problem removed Gastroenteritis Headache Hypertensive urgency Incomplete bladder emptying Medicare annual wellness visit, initial Migraine headache Overactive bladder (10/31/12) Rhinitis, allergic Tonsillitis and adenoiditis, chronic Urinary incontinence Surgical History History of appendectomy History of bladder surgery Bladder sling History of cholecystectomy History of hysterectomy Status post surgery Cystocele repair Family History Mother Arthritis Sister Migraine Father Malignant neoplasm of prostate Social History household members: spouse housing: house marital status: pets and animals: No leisure activities: other sexually active: No other: Children-4, 3 living well-balanced diet: daily or most days high-fat food intake: 0-1 times daily daily servings fruits/ve-1 daily servings of milk/calcium: 0-1 eating out: rarely or never during the past year weight has: remained stable physical activity: walking frequency: 1-2 times per week duration: < 15 minutes/day smoking status: Never smoker alcohol intake frequency: does not drink substance use type: does not use cassi/druze: Other special cassi needs: No seatbelt use: always working smoke detector in home: Yes MEDS/ALLERGIES Home Medications and Allergies Home Medications Medication Instructions Recorded Confirmed Type propranolol 10 mg tablet 10 mg PO TID #90 tab 04/14/21 Rx cephalexin 500 mg capsule 500 mg PO BID #14 cap 04/19/21 Rx lorazepam 0.5 mg tablet 0.5 mg PO TID PRN #20 tab 04/21/21 Rx Allergies Allergy/AdvReac Type Severity Reaction Status Date / Time levofloxacin [From Levaquin] Allergy Unknown Unknown Verified 04/19/21 05:27 morphine Allergy Unknown Unknown Verified 04/19/21 05:27 hydrocodone AdvReac Vomiting Verified 04/19/21 05:27 meperidine [From Demerol] AdvReac Vomiting Verified 04/19/21 05:27 oxycodone [Oxycodone] AdvReac Vomiting Verified 04/19/21 05:27 EXAM Constitutional Vitals: Temp Pulse Resp BP Pulse Ox 37.2 C 68 18 118/90 94 04/22/21 10:41 04/22/21 18:44 04/22/21 13:36 04/22/21 15:02 04/22/21 18:44 General appearance: cooperative and no acute distress Head Head exam: Present atraumatic and normocephalic Eye Eye exam: Present EOMI and PERRL ENT ENT exam: Present mucous membranes moist, normal exam and normal external ear exam Additional comments: No teeth Aphthous ulcer in upper jaw Neck Neck exam: Present normal inspection; Absent lymphadenopathy, tenderness or thyromegaly Respiratory Respiratory exam: Absent accessory muscle use, respiratory distress or wheezes Cardiovascular Cardiovascular exam: Present normal rate and rhythm; Absent JVD GI/Abdominal GI/Abdominal exam: Present normal bowel sounds and soft; Absent organomegaly or tenderness Extremities Exam Extremities exam: Present full ROM, normal capillary refill and normal inspection; Absent tenderness Neurological Exam Neurological exam: Present alert and CN II-XII intact; Absent motor sensory deficit or oriented X3 Additional comments: oriented X2 to person and place Psychiatric Psychiatric exam: Present normal affect and normal mood; Absent anxious or depressed Skin Skin exam: Present dry and intact DATA Data Completed and Pending Labs: Labs from last 24 hours 04/22/21 04/22/21 04/22/21 12:35 12:35 12:15 WBC RBC Hgb Hct MCV MCH MCHC RDW Plt Count MPV Neut % (Auto) Lymph % (Auto) [place] % (Auto) Eos % (Auto) Baso % (Auto) Lymph # (Auto) [place] # (Auto) Eos # (Auto) Baso # (Auto) Absolute Neutrophils VBG Lactic Acid 1.0 Sodium Potassium Chloride Carbon Dioxide Anion Gap BUN Creatinine GFR Calculation Glucose Calcium Total Bilirubin AST ALT Alkaline Phosphatase Ammonia 14 Total Creatine Kinase Troponin T Total Protein Albumin Globulin Albumin/Globulin Ratio TSH Thyroxine (T4) Urine Color Yellow Urine Appearance Clear Urine pH 6.0 Ur Specific [place] 1.012 Urine Protein 30 A Urine Glucose (UA) Negative Urine Ketones Negative Urine Occult Blood Negative Urine Nitrate Negative Urine Bilirubin Negative Urine Urobilinogen Negative Ur Leukocyte Esterase Negative Urine RBC 0 Urine WBC 1 Ur Squamous Epith Cells 4 Urine Bacteria None Urine Mucus Few A Ur Culture Indicated? No Urine Opiates Screen Ur Opiates Confirm Ur Oxycodone Screen Urine Methadone Screen Ur Methadone Confirm Acetaminophen Ur Barbiturates Screen Ur Barbiturate Confirm Ur Phencyclidine Scrn Urine PCP Confirm Ur Amphetamines Screen U Amphetamines Confirm U Benzodiazepines Scrn U Benzodiazepine Confm Urine Cocaine Screen Urine Cocaine Confirm U Cannabinoids Confirm U Marijuana (THC) Screen Drug Screen Specimen Ethyl Alcohol 04/22/21 04/22/21 04/22/21 12:15 11:37 11:37 WBC RBC Hgb Hct MCV MCH MCHC RDW Plt Count MPV Neut % (Auto) Lymph % (Auto) [place] % (Auto) Eos % (Auto) Baso % (Auto) Lymph # (Auto) [place] # (Auto) Eos # (Auto) Baso # (Auto) Absolute Neutrophils VBG Lactic Acid Sodium Potassium Chloride Carbon Dioxide Anion Gap BUN Creatinine GFR Calculation Glucose Calcium Total Bilirubin AST ALT Alkaline Phosphatase Ammonia Total Creatine Kinase Troponin T Total Protein Albumin Globulin Albumin/Globulin Ratio TSH 0.96 Thyroxine (T4) 6.5 Urine Color Urine Appearance Urine pH Ur Specific [place] Urine Protein Urine Glucose (UA) Urine Ketones Urine Occult Blood Urine Nitrate Urine Bilirubin Urine Urobilinogen Ur Leukocyte Esterase Urine RBC Urine WBC Ur Squamous Epith Cells Urine Bacteria Urine Mucus Ur Culture Indicated? Urine Opiates Screen None detected Ur Opiates Confirm TNP Ur Oxycodone Screen None detected Urine Methadone Screen None detected Ur Methadone Confirm TNP Acetaminophen Ur Barbiturates Screen None detected Ur Barbiturate Confirm TNP Ur Phencyclidine Scrn None detected Urine PCP Confirm TNP Ur Amphetamines Screen None detected U Amphetamines Confirm TNP U Benzodiazepines Scrn None detected U Benzodiazepine Confm TNP Urine Cocaine Screen None detected Urine Cocaine Confirm TNP U Cannabinoids Confirm TNP U Marijuana (THC) Screen None detected Drug Screen Specimen Ethyl Alcohol < 0.010 04/22/21 04/22/21 04/22/21 11:37 11:37 11:37 WBC RBC Hgb Hct MCV MCH MCHC RDW Plt Count MPV Neut % (Auto) Lymph % (Auto) Bryan % (Auto) Eos % (Auto) Baso % (Auto) Lymph # (Auto) Bryan # (Auto) Eos # (Auto) Baso # (Auto) Absolute Neutrophils VBG Lactic Acid Sodium 133 Potassium 3.2 L Chloride 96 Carbon Dioxide 23 Anion Gap 14.0 BUN 12 Creatinine 1.0 GFR Calculation 52 Glucose 103 Calcium 8.3 L Total Bilirubin 0.7 AST 20 ALT 16 Alkaline Phosphatase 69 Ammonia Total Creatine Kinase 196 H Troponin T 0.02 Total Protein 7.3 Albumin 3.9 Globulin 3.4 Albumin/Globulin Ratio 1.1 TSH Thyroxine (T4) Urine Color Urine Appearance Urine pH Ur Specific [place] Urine Protein Urine Glucose (UA) Urine Ketones Urine Occult Blood Urine Nitrate Urine Bilirubin Urine Urobilinogen Ur Leukocyte Esterase Urine RBC Urine WBC Ur Squamous Epith Cells Urine Bacteria Urine Mucus Ur Culture Indicated? Urine Opiates Screen Ur Opiates Confirm Ur Oxycodone Screen Urine Methadone Screen Ur Methadone Confirm Acetaminophen < 5.0 Ur Barbiturates Screen Ur Barbiturate Confirm Ur Phencyclidine Scrn Urine PCP Confirm Ur Amphetamines Screen U Amphetamines Confirm U Benzodiazepines Scrn U Benzodiazepine Confm Urine Cocaine Screen Urine Cocaine Confirm U Cannabinoids Confirm U Marijuana (THC) Screen Drug Screen Specimen Pending Ethyl Alcohol Cancelled 04/22/21 11:37 WBC 4.4 L RBC 2.99 L Hgb 8.4 L Hct 25.0 L MCV 83.6 MCH 28.1 MCHC 33.6 RDW 15.1 H Plt Count 185 MPV 10.4 Neut % (Auto) 52.7 Lymph % (Auto) 32.6 Bryan % (Auto) 13.8 H Eos % (Auto) 0.7 Baso % (Auto) 0.2 Lymph # (Auto) 1.42 L [place] # (Auto) 0.60 Eos # (Auto) 0.03 Baso # (Auto) 0.01 Absolute Neutrophils 2.30 VBG Lactic Acid Sodium Potassium Chloride Carbon Dioxide Anion Gap BUN Creatinine GFR Calculation Glucose Calcium Total Bilirubin AST ALT Alkaline Phosphatase Ammonia Total Creatine Kinase Troponin T Total Protein Albumin Globulin Albumin/Globulin Ratio TSH Thyroxine (T4) Urine Color Urine Appearance Urine pH Ur Specific [place] Urine Protein Urine Glucose (UA) Urine Ketones Urine Occult Blood Urine Nitrate Urine Bilirubin Urine Urobilinogen Ur Leukocyte Esterase Urine RBC Urine WBC Ur Squamous Epith Cells Urine Bacteria Urine Mucus Ur Culture Indicated? Urine Opiates Screen Ur Opiates Confirm Ur Oxycodone Screen Urine Methadone Screen Ur Methadone Confirm Acetaminophen Ur Barbiturates Screen Ur Barbiturate Confirm Ur Phencyclidine Scrn Urine PCP Confirm Ur Amphetamines Screen U Amphetamines Confirm U Benzodiazepines Scrn U Benzodiazepine Confm Urine Cocaine Screen Urine Cocaine Confirm U Cannabinoids Confirm U Marijuana (THC) Screen Drug Screen Specimen Ethyl Alcohol A/P Assessment and plan (1) Asymptomatic COVID-19 virus infection: Status: Acute (2) Alzheimer disease: Status: Acute (3) Hypokalemia: Status: Acute (4) Anemia, normocytic normochromic: Status: Acute Narrative A/P Narrative: Assessment and Plans: 1. Alzheimer's disease: Observation med surg for safe placement linen worker consulted for placement Continue Donepezil 2. Hypokalemia: K-Dur oral replacement Repeat BMP in the morning to trend serum potassium level 3. Anemia, normocytic normochromic: cbc w/ auto diff in the morning to trend H/H; transfuse pRBC if hemoglobin<7.0, active bleeding, or symptomatic 4. Asymptomatic CoVID carrier: Isolation airborne and contact Currently tolerating room air, hence no treatment is indicated 5. Aphthous ulcer: Lidocaine topical solution q4hr PRN aphthous ulcer GI ppx: not currently indicated DVT ppx: patient is ambulatory Code status: Full Prognosis: stable Disposition: observation med surg Time Spent With Patient Time: Total time spent is greater than 50% in coordination of care (as documented) at patient's floor/unit and/or counseling patient: Total time spent with greater than 50% in coordination of care (as documented) at patient's floor/unit and/or counseling patient:: 15 - 24 minutes
[2021-04-22] MEDS ORDERED: IPRATROPIUM/ALBUTEROL 3 ML AMPUL.NEB NEB PRN (23:03)
[2021-04-22] MEDS ORDERED: ONDANSETRON 4 MG/2 ML VIAL IV PRN (23:03)
[2021-04-22] MEDS ORDERED: ZOLPIDEM 5 MG TABLET PO PRN (23:03)
[2021-04-22] MEDS ORDERED: LIDOCAINE JEL 2% 1 TUBE 5ML TOPICAL PRN (23:03)
[2021-04-22] MEDS ORDERED: PROPRANOLOL 10 MG TABLET PO STA (23:45)
[2021-04-22] MEDS ORDERED: ONDANSETRON 4 MG ODT TABLET SL PRN (23:47)
[2021-04-23] MEDS ORDERED: ACETAMINOPHEN 325 MG TABLET PO ONE (01:05)
[2021-04-23] MEDS: ACETAMINOPHEN 325 MG TABLET PO PRN ×2 (01:06→18:52)
[2021-04-23] MEDS: PROPRANOLOL 10 MG TABLET PO SCH ×4 (01:06→21:03)
[2021-04-23] MEDS: LORazepam 0.5 MG TABLET PO PRN ×3 (04:44→18:33)
[2021-04-23] MEDS ORDERED: 0.9 % SODIUM CHLORIDE 10 ML SYRINGE IV SCH (06:00)
[2021-04-23 07:24] LABS: Basophils # (Auto) 0.01 K/mcL (0.00-0.30); Basophils % (Auto) 0.4 % (0.0-2.0); Eosinophils # (Auto) 0.07 K/mcL (0.00-0.70); Eosinophils % (Auto) 2.5 % (0.0-7.0); Hematocrit 31.1 % (34.1-44.9); Hemoglobin 10.5 g/dL (11.2-15.7); Lymphocytes # (Auto) 0.89 K/mcL (1.50-4.80); Lymphocytes % (Auto) 31.6 % (15.5-49.0); Mean Cell Volume 82.9 fL (80.0-100.0); Mean Corpuscular HGB Conc 33.8 g/dL (31.0-36.0); Mean Platelet Volume 9.9 fL (7.4-10.4); Monocytes # (Auto) 0.37 K/mcL (0.10-0.90); Monocytes % (Auto) 13.1 % (1.0-12.0); Neutrophils % (Auto) 52.4 % (38.0-78.0); Platelet Count 139 K/mcL (140-440); RBC 3.75 M/mcL (3.59-5.38); WBC 2.8 K/mcL (4.5-11.0)
[2021-04-23 07:30] LABS: Blood Urea Nitrogen 13 mg/dL (8-23); Calcium 8.2 mg/dL (8.6-10.4); Carbon Dioxide 24 mmol/L (22-30); Chloride 96 mmol/L (96-108); Glomerular Filtration Rate 81; Glucose 124 mg/dL (70-105)
[2021-04-23] MEDS ORDERED: POTASSIUM CHLORIDE 20 MEQ TABLET PO SCH (08:00)
[2021-04-23] MEDS: DOCUSATE SODIUM 100 MG CAPSULE PO SCH ×2 (08:21→21:05)
--- NOTE | 2021-04-23 09:45 | Internal Med Progress Note ---
SUBJECTIVE Subjective Patient information: Note initiated : 04/23/21 at 9:38 am Service Date, if different from initiated Date: [] Patient: Manasa Pinon a 81 y/o F admitted on 04/22/21 for dementia. Chief Complaint: [] Interval history: History of present illness: Ms. Pinon is a 81 year old F history of asthma dementia, being dropped by family member to the ER because no one was able to take care of her at home. Her recently . Patient is also tested positive for Covid pneumonia. She has no symptoms for Covid pneumonia though and she is tolerating room air fine with no increased work of breathing. No cough or wheezing at all. No fever or chills at all. No urinary symptoms whatsoever such as increased urinary frequency urgency or dysuria. Except for mild anemia and hypokalemia, all the labs were within normal limits as well. Patient with at time before confused but at other time was totally intact. Admission request asked due to family unable to take patient's back home and provide her with a safe placement. 04/23: Patient still very confused. Otherwise there was no other major overnight events. Awaiting family to come pick her up, hopefully on Sunday. Constitutional Vitals: Vital Signs Temp Pulse Resp BP Pulse Ox 36.1 C 60 20 142/96 96 04/23/21 07:56 04/23/21 03:30 04/23/21 07:56 04/23/21 07:56 04/23/21 07:56 Period Temp Pulse Resp BP Sys/Wood Pulse Ox Last 24 Hr 36.1 C-37.2 C 58-82 16-20 118-203/67-96 91-99 Intake and Output 04/22/21 04/23/21 04/23/21 21:59 05:59 13:59 Intake Total 200 Output Total 400 Balance -200 Weight 79.696 kg Intake & Output: Intake & Output 04/22/21 04/23/21 04/23/21 21:59 05:59 13:59 Intake Total 200 Output Total 400 Balance -200 Weight 79.696 kg Intake: Oral 200 Output: Void Amount 400 Other: Urine Appearance Clear Urine Color Bright Yellow Urine Odor Normal # Voids 150 General appearance: cooperative and no acute distress Head Head exam: Present atraumatic and normal inspection Eye Eye exam: Present normal appearance ENT ENT exam: Present mucous membranes moist, normal exam and normal external ear exam Additional comments: No teeth Aphthous ulcers Neck Neck exam: Present normal inspection Respiratory Respiratory exam: Present normal respiratory exam Cardiovascular Cardiovascular exam: Present normal rate and rhythm GI/Abdominal GI/Abdominal exam: Present normal bowel sounds Back Exam Back exam: Present normal inspection Neurological Exam Neurological exam: Present alert and motor sensory deficit; Absent oriented X3 Skin Skin exam: Present intact and warm OBJ DATA Labs CBC & Chem 7: 04/23/21 06:10 04/23/21 06:10 Labs: Abnormal Lab Results 04/23/21 04/23/21 04/22/21 06:10 06:10 12:15 WBC 2.8 L RBC Hgb 10.5 L Hct 31.1 L RDW 15.0 H Plt Count 139 L [place] % (Auto) 13.1 H Lymph # (Auto) 0.89 L Absolute Neutrophils 1.48 L Potassium 3.2 L Glucose 124 H Calcium 8.2 L Total Creatine Kinase Urine Protein 30 A Urine Mucus Few A 04/22/21 04/22/21 11:37 11:37 WBC 4.4 L RBC 2.99 L Hgb 8.4 L Hct 25.0 L RDW 15.1 H Plt Count [place] % (Auto) 13.8 H Lymph # (Auto) 1.42 L Absolute Neutrophils Potassium 3.2 L Glucose Calcium 8.3 L Total Creatine Kinase 196 H Urine Protein Urine Mucus Meds: Medications Acetaminophen (Acetaminophen 325 Mg Tablet) 650 mg PO Q6HP PRN; Protocol PRN Reason: Per Pain Protocol/Fever > 101 Last Admin: 04/23/21 01:06 Dose: 650 mg Documented by: Albuterol/Ipratropium (Ipratropium/Albuterol 3 Ml Ampul.Neb) 3 ml NEB Q4HRT PRN PRN Reason: Wheezing Docusate Sodium (Docusate Sodium 100 Mg Capsule) 100 mg PO BID NORA Last Admin: 04/23/21 08:21 Dose: 100 mg Documented by: Donepezil HCl (Donepezil 10 Mg Tablet) 5 mg PO HS NORA Lidocaine HCl (Lidocaine Jel 2% 1 Tube 5ml) 1 dose TOPICAL Q4HP PRN PRN Reason: Cold Sores Last Admin: 04/23/21 01:09 Dose: 1 dose Documented by: Lorazepam (Lorazepam 0.5 Mg Tablet) 0.5 mg PO TID PRN PRN Reason: anxiety Last Admin: 04/23/21 04:44 Dose: 0.5 mg Documented by: Ondansetron HCl (Ondansetron 4 Mg Odt Tablet) 4 mg SL Q6HP PRN PRN Reason: Nausea And Vomiting Propranolol HCl (Propranolol 10 Mg Tablet) 10 mg PO TID NORA Last Admin: 04/23/21 08:21 Dose: 10 mg Documented by: Senna (Sennosides 1 Tablet) 2 tab PO HS NORA Zolpidem Tartrate (Zolpidem 5 Mg Tablet) 5 mg PO HSP PRN PRN Reason: Insomnia A/P Assessment and plan (1) Asymptomatic COVID-19 virus infection: Status: Acute (2) Alzheimer disease: Status: Acute (3) Hypokalemia: Status: Acute (4) Anemia, normocytic normochromic: Status: Acute Narrative A/P Narrative: Assessment and Plans: 1. Alzheimer's disease: Observation med surg for safe placement storage worker consulted for placement Continue Donepezil 2. Hypokalemia: K-Dur oral replacement Repeat BMP in the morning to trend serum potassium level Also check serum Mg level and replace if needed 3. Anemia, normocytic normochromic: cbc w/ auto diff in the morning to trend H/H; transfuse pRBC if hemoglobin<7.0, active bleeding, or symptomatic 4. Asymptomatic CoVID carrier: Isolation airborne and contact Currently tolerating room air, hence no treatment is indicated 5. Aphthous ulcer: Lidocaine topical solution q4hr PRN aphthous ulcer GI ppx: not currently indicated DVT ppx: patient is ambulatory Code status: Full Prognosis: stable Disposition: observation med surg Time Spent With Patient Time: Total time spent is greater than 50% in coordination of care (as documented) at patient's floor/unit and/or counseling patient: Total time spent with greater than 50% in coordination of care (as documented) at patient's floor/unit and/or counseling patient:: 15 - 24 minutes QUALITY VTE Deep Vein Thrombosis/Pulmonary Embolism Present on Admission: No
[2021-04-23] MEDS ORDERED: HALOPERIDOL 5 MG TABLET PO PRN (15:12)
[2021-04-23] MEDS ORDERED: traZODone HCL 50 MG TABLET PO PRN (17:35)
[2021-04-23] MEDS: POTASSIUM CHLORIDE 20 MEQ TABLET PO SCH (17:40)
[2021-04-23] MEDS ORDERED: traZODone HCL 50 MG TABLET ONE (18:30)
[2021-04-23] MEDS: DONEPEZIL 10 MG TABLET PO SCH ×2 (18:33→20:14)
[2021-04-23] MEDS ORDERED: SENNOSIDES 1 TABLET PO SCH (21:00)
[2021-04-24] MEDS: PROPRANOLOL 10 MG TABLET PO SCH ×2 (05:09→09:09)
[2021-04-24 06:56] LABS: Basophils # (Auto) 0.01 K/mcL (0.00-0.30); Basophils % (Auto) 0.3 % (0.0-2.0); Eosinophils # (Auto) 0.04 K/mcL (0.00-0.70); Eosinophils % (Auto) 1.1 % (0.0-7.0); Hematocrit 31.8 % (34.1-44.9); Hemoglobin 10.3 g/dL (11.2-15.7); Lymphocytes # (Auto) 0.94 K/mcL (1.50-4.80); Lymphocytes % (Auto) 26.2 % (15.5-49.0); Mean Cell Volume 84.8 fL (80.0-100.0); Mean Corpuscular HGB Conc 32.4 g/dL (31.0-36.0); Monocytes % (Auto) 8.4 % (1.0-12.0); Platelet Count 145 K/mcL (140-440); RBC 3.75 M/mcL (3.59-5.38); Red Cell Distribution Width 14.9 % (11.5-14.5); WBC 3.6 K/mcL (4.5-11.0)
[2021-04-24 07:36] LABS: Blood Urea Nitrogen 12 mg/dL (8-23); Calcium 8.3 mg/dL (8.6-10.4); Carbon Dioxide 23 mmol/L (22-30); Chloride 96 mmol/L (96-108); Glomerular Filtration Rate 69; Glucose 111 mg/dL (70-105)
--- NOTE | 2021-04-24 07:39 | EKG ---
[facility] Test Date: 2021-04-22 Pat Name: Manasa Pinon Department: ED Room: Gender: Female Envelope Stuffer: HBS : 1940 Requested By: Magdy Crawford Order Number: [id number] Reading MD: Tone Lowery Measurements Intervals [place] Rate: 59 P: 39 FL: 148 QRS: -11 QRSD: 146 T: 2 QT: 508 QTc: 504 Interpretive Statements SINUS RHYTHM MULTIPLE ATRIAL PREMATURE COMPLEXES RIGHT BUNDLE BRANCH BLOCK Electronically Signed On 04-24-2021 7:39:11 PST by Tone Lowery /store/M0/[id number]
[2021-04-24] MEDS: DOCUSATE SODIUM 100 MG CAPSULE PO SCH (09:09)
[2021-04-24] MEDS: POTASSIUM CHLORIDE 20 MEQ TABLET PO SCH (09:09)
--- NOTE | 2021-04-24 11:32 | Discharge Summary ---
Discharge Provider Provider Patient information: Note initiated : 04/24/21 at 11:30 am Service Date, if different from initiated Date: [] Patient: Manasa Pinon 81 y/o F admitted on 04/22/21 for dementia. Chief Complaint: [dementia] Date of admission: 04/22/21 22:49 Discharge date: 04/24/21 Primary care physician: Titi Costello PA-C Attending physician on admission: Colton Pena Consults: 04/22/21 Consult to Physician [CONS] Stat Comment: Consulting Provider: Colton Pena Reason For Exam: Physician to Consult Attending physician on discharge: Colton aPdilla Pujake Discharge Meds Discharge Medications Home Medications propranolol 10 mg tablet 10 mg PO TID #90 tab 04/14/21 [Rx Last Taken Unknown] lorazepam 0.5 mg tablet 0.5 mg PO TID PRN #20 tab 04/21/21 [Rx Last Taken Unknown] donepezil 10 mg tablet 5 mg PO HS #30 tab 04/24/21 [Rx Last Taken Unknown] COURSE Hospital Course Hospital course: History of present illness: Ms. Pinon is a 81 year old F history of asthma dementia, being dropped by family member to the ER because no one was able to take care of her at home. Her recently . Patient is also tested positive for Covid pneumonia. She has no symptoms for Covid pneumonia though and she is tolerating room air fine with no increased work of breathing. No cough or wheezing at all. No fever or chills at all. No urinary symptoms whatsoever such as increased urinary frequency urgency or dysuria. Except for mild anemia and hypokalemia, all the labs were within normal limits as well. Patient with at time before confused but at other time was totally intact. Admission request asked due to family unable to take patient's back home and provide her with a safe placement. 04/23: Patient still very confused. Otherwise there was no other major overnight events. Awaiting family to come pick her up, hopefully on Sunday. Patient eloped in the afternoon and being escorted back by campus police officer. 04/24: Discharged with family. Discharge diagnosis: Dementia Time Spent with Patient Time attestation: Total time spent providing and/or coordinating discharge services: Time spent: Less than 30 minutes EXAM Constitutional Vitals: Temp Pulse Resp BP Pulse Ox 36.8 C 67 16 190/84 91 04/24/21 05:02 04/24/21 05:02 04/24/21 05:02 04/24/21 05:02 04/24/21 05:02 General appearance: cooperative and no acute distress Head Head exam: Present atraumatic and normocephalic Eye Eye exam: Present EOMI and PERRL ENT ENT exam: Present mucous membranes moist, normal exam and normal external ear exam Neck Neck exam: Present normal inspection; Absent lymphadenopathy, tenderness or thyromegaly Respiratory Respiratory exam: Absent accessory muscle use, respiratory distress or wheezes Cardiovascular Cardiovascular exam: Present normal rate and rhythm; Absent JVD GI/Abdominal GI/Abdominal exam: Present normal bowel sounds and soft; Absent organomegaly or tenderness Extremities Exam Extremities exam: Present full ROM, normal capillary refill and normal inspection; Absent tenderness Neurological Exam Neurological exam: Present alert and CN II-XII intact; Absent motor sensory deficit or oriented X3 Additional comments: oriented X2 person and place only Psychiatric Psychiatric exam: Present normal affect and normal mood; Absent anxious or depressed Skin Skin exam: Present dry and intact Discharge Data Data Completed and Pending Labs on day of discharge: Labs from last 24 hours 04/24/21 04/24/21 04/24/21 06:01 06:01 06:00 WBC 3.6 L RBC 3.75 Hgb 10.3 L Hct 31.8 L MCV 84.8 MCH 27.5 MCHC 32.4 RDW 14.9 H Plt Count 145 MPV 10.0 Neut % (Auto) 64.0 Lymph % (Auto) 26.2 [place] % (Auto) 8.4 Eos % (Auto) 1.1 Baso % (Auto) 0.3 Lymph # (Auto) 0.94 L [place] # (Auto) 0.30 Eos # (Auto) 0.04 Baso # (Auto) 0.01 Absolute Neutrophils 2.30 Sodium 133 Potassium 3.2 L Chloride 96 Carbon Dioxide 23 Anion Gap 14.0 BUN 12 Creatinine 0.8 GFR Calculation 69 Glucose 111 H Calcium 8.3 L Magnesium 2.1 Preliminary micro results at discharge 04/22/21 12:35 Blood Culture - Preliminary Blood 04/22/21 11:37 Blood Culture - Preliminary Blood Discharge Plan Patient/Caregiver Discharge Instructions Activity: resume usual activities as tolerated Diet: Regular Diet Instructions: COVID-19, Grief and Loss (ED), Acute Delirium (ED), Urinary Tract Infection in Older Adults (ED) Activity Restrictions/Additional Instructions: Thank you for coming to the ER today. You have been seen for confusion. At this time there is no evidence of an emergency that would require admission to the hospital. You can go home in the care of your family. If you have any new, changing, or worsening symptoms, please return to the ER. Otherwise please continue to self isolate, and please continue your antibiotics. Please see your PCP by phone or video in the next 2-3 days. Prescriptions: New donepezil 10 mg Tablet 5 mg PO HS Qty: 30 0RF Continued propranolol 10 mg tablet 10 mg PO TID Qty: 90 3RF lorazepam 0.5 mg tablet 0.5 mg PO TID PRN (Reason: anxiety) Qty: 20 0RF Discontinued cephalexin 500 mg capsule 500 mg PO BID Qty: 14 0RF Follow Up Plan Follow up with: Titi Costello PA-C [Primary Care Provider] - Patient Disposition: Xfer Other Prognosis: Fair Rehab Potential: Good I certify that the patient requires SNF services: No Overall status at discharge: patient is back to baseline Discharge Orders: Discharge Order (Routine); Ordered 04/24/21 Ordered By: Colton BYRNES VTE Deep Vein Thrombosis/Pulmonary Embolism Present on Admission: No
== END 2021-04-24 14:40 | disposition other institution (70) ==
LOC: MEDSUR 10:39 → ED 10:39 → MEDSUR 22:49
PROVIDERS: ADMIT Internal Medicine; ATTEND Internal Medicine

== ENCOUNTER 2024-04-01 13:14 | Inpatient (IN) ==
[2024-04-01 14:59] LABS: Basophils # (Auto) 0.02 K/mcL (0.00-0.30); Basophils % (Auto) 0.3 % (0.0-2.0); Eosinophils # (Auto) 0.23 K/mcL (0.00-0.70); Hematocrit 31.1 % (34.1-44.9); Hemoglobin 9.6 g/dL (11.2-15.7); Lymphocytes # (Auto) 1.25 K/mcL (1.50-4.80); Lymphocytes % (Auto) 16.3 % (15.5-49.0); Mean Corpuscular HGB Conc 30.9 g/dL (31.0-36.0); Mean Platelet Volume 11.7 fL (8.8-12.5); Monocytes # (Auto) 0.49 K/mcL (0.10-0.90); Monocytes % (Auto) 6.4 % (1.0-12.0); Neutrophils % (Auto) 73.6 % (38.0-78.0); Platelet Count 146 K/mcL (140-440); RBC 3.24 M/mcL (3.59-5.38); Red Cell Distribution Width 19.4 % (11.5-14.5); WBC 7.7 K/mcL (4.5-11.0)
[2024-04-01 15:11] LABS: ALT/SGPT 33 U/L (<40); AST/SGOT 22 U/L (<32); Albumin 3.5 gm/dL (3.2-5.2); Albumin/Globulin Ratio 1.4 (1.0-2.3); Alkaline Phosphatase 94 U/L (39-117); Blood Urea Nitrogen 62 mg/dL (8-23); Calcium 8.3 mg/dL (8.6-10.4); Carbon Dioxide 24 mmol/L (22-30); Chloride 89 mmol/L (96-108); Globulin 2.5 gm/dL (2.2-3.7); Glomerular Filtration Rate 27; Glucose 131 mg/dL (70-105); Potassium 4.2 mmol/L (3.3-5.1); Sodium 127 mmol/L (133-145); Thyroid Stimulating Hormone 4.55 uIU/mL (0.27-5.01)
[2024-04-01 15:27] LABS: proBNP > 70000.0 pg/mL (<450.0)
[2024-04-01 15:42] LABS: Free T4 (Free Thyroxine) 1.37 ng/dL (0.93-1.70)
[2024-04-01] MEDS: 0.9 % SODIUM CHLORIDE 500 ML IV ONE (15:50)
[2024-04-01 16:08] LABS: Appearance,Urine Clear (Clear); Bacteria,Urine Mod /hpf (0); Bilirubin,Urine Negative (Negative); Color,Urine Yellow; Glucose,Urine (UA) Negative (Negative); Ketones,Urine Negative (Negative); Leukocyte Esterase,Urine Trace /uL (Negative); Nitrate,Urine Positive (Negative); PH,Urine 5.5 (5.0-9.0); Protein,Urine Negative (Negative); Specific Gravity,Urine 1.015 (1.000-1.035); Urine Blood Trace-intact ery/mcL (Negative); Urine RBC 0 /hpf (0-3); Urine Squamous Epithelial Cell 4 /hpf (0-4); Urine WBC 36 /hpf (0-4); Urobilinogen,Urine Normal
[2024-04-01] MEDS: cefTRIAXone 1 GM VIAL IV ONE (17:10)
[2024-04-01] MEDS: DOXYCYCLINE 100 MG in DEXTROSE 5% IN WATER 100 ML IV ONE (17:20)
[2024-04-01] MEDS: FUROSEMIDE 40 MG/4 ML VIAL IV SCH (19:33)
[2024-04-01] MEDS ORDERED: POLYETHYLENE GLYCOL 3350 17 GM PACKET PO PRN (21:01)
[2024-04-01 21:46] LABS: Blood Urea Nitrogen 59 mg/dL (8-23); Calcium 7.7 mg/dL (8.6-10.4); Carbon Dioxide 22 mmol/L (22-30); Chloride 89 mmol/L (96-108); Glomerular Filtration Rate 27; Glucose 136 mg/dL (70-105); Sodium 128 mmol/L (133-145)
[2024-04-01] MEDS: 0.9 % SODIUM CHLORIDE 10 ML SYRINGE IV SCH (22:35)
[2024-04-02 06:42] LABS: Basophils # (Auto) 0.02 K/mcL (0.00-0.30); Basophils % (Auto) 0.3 % (0.0-2.0); Eosinophils # (Auto) 0.28 K/mcL (0.00-0.70); Eosinophils % (Auto) 4.2 % (0.0-7.0); Hematocrit 29.3 % (34.1-44.9); Hemoglobin 8.8 g/dL (11.2-15.7); Lymphocytes # (Auto) 1.55 K/mcL (1.50-4.80); Lymphocytes % (Auto) 23.4 % (15.5-49.0); Mean Cell Volume 97.3 fL (80.0-100.0); Mean Platelet Volume 11.8 fL (8.8-12.5); Monocytes # (Auto) 0.56 K/mcL (0.10-0.90); Monocytes % (Auto) 8.5 % (1.0-12.0); Neutrophils % (Auto) 63.1 % (38.0-78.0); Platelet Count 109 K/mcL (140-440); RBC 3.01 M/mcL (3.59-5.38); WBC 6.6 K/mcL (4.5-11.0)
[2024-04-02 06:51] LABS: ALT/SGPT 27 U/L (<40); AST/SGOT 19 U/L (<32); Albumin 3.2 gm/dL (3.2-5.2); Albumin/Globulin Ratio 1.4 (1.0-2.3); Alkaline Phosphatase 85 U/L (39-117); Bilirubin,Direct 0.9 mg/dL (<0.3); Bilirubin,Total 1.3 mg/dL (0.1-1.0); Blood Urea Nitrogen 59 mg/dL (8-23); Calcium 7.9 mg/dL (8.6-10.4); Carbon Dioxide 23 mmol/L (22-30); Chloride 91 mmol/L (96-108); Globulin 2.3 gm/dL (2.2-3.7); Glomerular Filtration Rate 29; Glucose 115 mg/dL (70-105); Lactate Dehydrogenase 288 U/L (135-225); Phosphorous 4.1 mg/dL (2.5-4.5); Potassium 4.2 mmol/L (3.3-5.1); Sodium 128 mmol/L (133-145); Triglycerides 79 mg/dL (<150); Uric Acid 11.4 mg/dL (2.5-8.0)
[2024-04-02] MEDS: APIXABAN 2.5 MG TABLET PO SCH (08:11)
[2024-04-02] MEDS: SODIUM CHLORIDE 1 GM TABLET PO SCH ×2 (08:12→14:50)
[2024-04-02] MEDS: 0.9 % SODIUM CHLORIDE 500 ML IV SCH (08:12)
[2024-04-02] MEDS: DONEPEZIL 10 MG TABLET PO SCH (08:13)
[2024-04-02] MEDS: DOXYCYCLINE 100 MG in DEXTROSE 5% IN WATER 100 ML IV SCH (09:17)
[2024-04-02] MEDS: cefTRIAXone 2 GM in DEXTROSE 5% IN WATER 50 ML IV SCH (10:26)
[2024-04-02 12:48] LABS: Blood Urea Nitrogen 57 mg/dL (8-23); Calcium 7.7 mg/dL (8.6-10.4); Carbon Dioxide 24 mmol/L (22-30); Chloride 90 mmol/L (96-108); Glomerular Filtration Rate 34; Glucose 142 mg/dL (70-105); Potassium 3.2 mmol/L (3.3-5.1); Sodium 128 mmol/L (133-145)
[2024-04-02] MEDS: METOPROLOL SUCCINATE 25 MG TAB.XL.24H PO SCH (14:50)
[2024-04-02] MEDS: POTASSIUM CHLORIDE 20 MEQ PACKET PO SCH (14:50)
[2024-04-02] MEDS: 0.9 % SODIUM CHLORIDE 500 ML IV ONE ×2 (14:51→15:40)
[2024-04-02 20:30] LABS: Blood Urea Nitrogen 54 mg/dL (8-23); Calcium 7.6 mg/dL (8.6-10.4); Carbon Dioxide 24 mmol/L (22-30); Chloride 93 mmol/L (96-108); Glomerular Filtration Rate 37; Glucose 154 mg/dL (70-105); Potassium 3.9 mmol/L (3.3-5.1); Sodium 130 mmol/L (133-145)
[2024-04-02] MEDS: LORazepam 0.5 MG TABLET PO PRN (20:47)
[2024-04-03 06:18] LABS: Basophils # (Auto) 0.02 K/mcL (0.00-0.30); Basophils % (Auto) 0.3 % (0.0-2.0); Eosinophils % (Auto) 3.1 % (0.0-7.0); Hematocrit 28.1 % (34.1-44.9); Hemoglobin 8.5 g/dL (11.2-15.7); Lymphocytes # (Auto) 1.21 K/mcL (1.50-4.80); Lymphocytes % (Auto) 18.6 % (15.5-49.0); Mean Cell Volume 96.9 fL (80.0-100.0); Mean Corpuscular HGB Conc 30.2 g/dL (31.0-36.0); Mean Platelet Volume 12.3 fL (8.8-12.5); Monocytes # (Auto) 0.51 K/mcL (0.10-0.90); Monocytes % (Auto) 7.8 % (1.0-12.0); Neutrophils % (Auto) 69.9 % (38.0-78.0); Platelet Count 109 K/mcL (140-440); WBC 6.5 K/mcL (4.5-11.0)
[2024-04-03 06:57] LABS: ALT/SGPT 24 U/L (<40); AST/SGOT 16 U/L (<32); Albumin 3.2 gm/dL (3.2-5.2); Albumin/Globulin Ratio 1.4 (1.0-2.3); Alkaline Phosphatase 84 U/L (39-117); Bilirubin,Direct 0.6 mg/dL (<0.3); Bilirubin,Total 0.9 mg/dL (0.1-1.0); Blood Urea Nitrogen 52 mg/dL (8-23); Calcium 7.9 mg/dL (8.6-10.4); Carbon Dioxide 25 mmol/L (22-30); Chloride 95 mmol/L (96-108); Globulin 2.3 gm/dL (2.2-3.7); Glomerular Filtration Rate 41; Glucose 130 mg/dL (70-105); Lactate Dehydrogenase 287 U/L (135-225); Phosphorous 3.3 mg/dL (2.5-4.5); Potassium 3.6 mmol/L (3.3-5.1); Sodium 133 mmol/L (133-145); Triglycerides 70 mg/dL (<150); Uric Acid 10.5 mg/dL (2.5-8.0)
[2024-04-03] MEDS: 0.9 % SODIUM CHLORIDE 500 ML IV ONE ×2 (08:00→13:34)
[2024-04-03] MEDS: METOPROLOL SUCCINATE 25 MG TAB.XL.24H PO SCH (08:17)
[2024-04-03] MEDS: AMIODARONE HCL 200 MG TABLET PO SCH (08:17)
[2024-04-03] MEDS: SODIUM CHLORIDE 1 GM TABLET PO ONE (08:18)
[2024-04-03] MEDS: QUEtiapine 25 MG TABLET PO PRN (19:12)
[2024-04-03] MEDS: CIPROFLOXACIN 500 MG TABLET PO SCH (20:42)
[2024-04-03] MEDS: CEFDINIR 300 MG CAPSULE PO SCH (20:42)
[2024-04-03] MEDS: DOXYCYCLINE HYCLATE 100 MG TABLET.ORL PO SCH (20:42)
[2024-04-03] MEDS ORDERED: CIPROFLOXACIN 400 MG/200 ML BAG IV SCH (21:00)
[2024-04-03] MEDS: diphenhydrAMINE 50 MG/ML VIAL IV ONE (23:55)
[2024-04-03] MEDS: diphenhydrAMINE 50 MG/ML VIAL ONE (23:57)
[2024-04-04 06:41] LABS: Basophils # (Auto) 0.02 K/mcL (0.00-0.30); Basophils % (Auto) 0.4 % (0.0-2.0); Eosinophils # (Auto) 0.13 K/mcL (0.00-0.70); Eosinophils % (Auto) 2.3 % (0.0-7.0); Hematocrit 27.7 % (34.1-44.9); Hemoglobin 8.3 g/dL (11.2-15.7); Lymphocytes # (Auto) 0.96 K/mcL (1.50-4.80); Lymphocytes % (Auto) 17.2 % (15.5-49.0); Mean Cell Volume 96.5 fL (80.0-100.0); Mean Platelet Volume 11.8 fL (8.8-12.5); Monocytes # (Auto) 0.43 K/mcL (0.10-0.90); Monocytes % (Auto) 7.7 % (1.0-12.0); Neutrophils % (Auto) 71.9 % (38.0-78.0); Platelet Count 82 K/mcL (140-440); RBC 2.87 M/mcL (3.59-5.38); Red Cell Distribution Width 18.6 % (11.5-14.5); WBC 5.6 K/mcL (4.5-11.0)
[2024-04-04 07:10] LABS: ALT/SGPT 22 U/L (<40); AST/SGOT 17 U/L (<32); Albumin 3.3 gm/dL (3.2-5.2); Albumin/Globulin Ratio 1.5 (1.0-2.3); Alkaline Phosphatase 76 U/L (39-117); Bilirubin,Direct 0.6 mg/dL (<0.3); Bilirubin,Total 0.8 mg/dL (0.1-1.0); Blood Urea Nitrogen 46 mg/dL (8-23); Carbon Dioxide 23 mmol/L (22-30); Chloride 95 mmol/L (96-108); Globulin 2.2 gm/dL (2.2-3.7); Glomerular Filtration Rate 51; Glucose 132 mg/dL (70-105); Lactate Dehydrogenase 281 U/L (135-225); Phosphorous 2.9 mg/dL (2.5-4.5); Potassium 3.9 mmol/L (3.3-5.1); Sodium 132 mmol/L (133-145); Triglycerides 62 mg/dL (<150); Uric Acid 9.5 mg/dL (2.5-8.0)
[2024-04-04] MEDS: GLUCAGON,HUMAN RECOMBINANT 1 MG VIAL IV ONE ×2 (11:46→14:48)
[2024-04-04] MEDS: FUROSEMIDE 40 MG/4 ML VIAL IV ONE (14:48)
[2024-04-04] MEDS: 0.9 % SODIUM CHLORIDE 10 ML SYRINGE IV PRN (18:37)
[2024-04-04] MEDS: SENNOSIDES 1 TABLET PO PRN (20:23)
[2024-04-04] MEDS: 0.9 % SODIUM CHLORIDE 10 ML SYRINGE IV SCH (20:31)
[2024-04-04] MEDS: MELATONIN 3 MG TABLET PO SCH (23:10)
[2024-04-05 06:47] LABS: Basophils # (Auto) 0.02 K/mcL (0.00-0.30); Basophils % (Auto) 0.3 % (0.0-2.0); Eosinophils # (Auto) 0.17 K/mcL (0.00-0.70); Eosinophils % (Auto) 2.9 % (0.0-7.0); Hematocrit 24.9 % (34.1-44.9); Hemoglobin 7.5 g/dL (11.2-15.7); Lymphocytes # (Auto) 0.86 K/mcL (1.50-4.80); Lymphocytes % (Auto) 14.6 % (15.5-49.0); Mean Cell Volume 96.1 fL (80.0-100.0); Mean Corpuscular HGB Conc 30.1 g/dL (31.0-36.0); Mean Platelet Volume 12.6 fL (8.8-12.5); Monocytes # (Auto) 0.44 K/mcL (0.10-0.90); Monocytes % (Auto) 7.5 % (1.0-12.0); Neutrophils % (Auto) 74.5 % (38.0-78.0); Platelet Count 67 K/mcL (140-440); RBC 2.59 M/mcL (3.59-5.38); Red Cell Distribution Width 18.5 % (11.5-14.5); WBC 5.9 K/mcL (4.5-11.0)
[2024-04-05 07:03] LABS: ALT/SGPT 20 U/L (<40); AST/SGOT 15 U/L (<32); Albumin/Globulin Ratio 1.4 (1.0-2.3); Alkaline Phosphatase 69 U/L (39-117); Bilirubin,Direct 0.6 mg/dL (<0.3); Bilirubin,Total 0.9 mg/dL (0.1-1.0); Blood Urea Nitrogen 41 mg/dL (8-23); Carbon Dioxide 23 mmol/L (22-30); Chloride 96 mmol/L (96-108); Globulin 2.2 gm/dL (2.2-3.7); Glomerular Filtration Rate 51; Glucose 120 mg/dL (70-105); Lactate Dehydrogenase 262 U/L (135-225); Phosphorous 2.9 mg/dL (2.5-4.5); Potassium 4.1 mmol/L (3.3-5.1); Sodium 131 mmol/L (133-145); Triglycerides 56 mg/dL (<150); Uric Acid 8.7 mg/dL (2.5-8.0)
[2024-04-05] MEDS: GLUCAGON,HUMAN RECOMBINANT 1 MG VIAL IV PRN (08:01)
[2024-04-05] MEDS ORDERED: VANCOMYCIN PER PHARMACY IV SCH (10:59)
[2024-04-05] MEDS: PANTOPRAZOLE 40 MG VIAL IV ONE (11:51)
[2024-04-05] MEDS: VANCOMYCIN 1,000 MG in 0.9 % SODIUM CHLORIDE 250 ML IV SCH (12:53)
[2024-04-05] MEDS: ONDANSETRON 4 MG/2 ML VIAL IV PRN (13:18)
[2024-04-05] MEDS: CEFEPIME 1 GM VIAL IV SCH (15:15)
[2024-04-05] MEDS: 0.9 % SODIUM CHLORIDE 250 ML IV SCH (15:16)
[2024-04-05 16:12] LABS: Hemoglobin 7.7 g/dL (11.2-15.7)
[2024-04-05] MEDS: METOPROLOL TARTRATE 25 MG TABLET PO ONE (17:15)
[2024-04-05] MEDS ORDERED: IOPAMIDOL 100 ML BOTTLE IV ONE (17:37)
[2024-04-05] MEDS: QUEtiapine 25 MG TABLET PO SCH (20:26)
[2024-04-05] MEDS: PANTOPRAZOLE 40 MG VIAL IV SCH (20:26)
[2024-04-05] MEDS: 0.9 % SODIUM CHLORIDE 500 ML IV ONE ×2 (20:27→23:36)
[2024-04-05] MEDS ORDERED: LEVOFLOXACIN 750 MG/150 ML BAG IV SCH (21:00)
[2024-04-05] MEDS: GLUCAGON,HUMAN RECOMBINANT 1 MG VIAL IV ONE (23:34)
[2024-04-05] MEDS ORDERED: NOREPINEPHRINE BITARTRATE 16 MG in 0.9 % SODIUM CHLORIDE 234 ML IV PRN (23:45)
[2024-04-06 00:02] LABS: Basophils # (Auto) 0.02 K/mcL (0.00-0.30); Basophils % (Auto) 0.3 % (0.0-2.0); Eosinophils # (Auto) 0.07 K/mcL (0.00-0.70); Eosinophils % (Auto) 1.2 % (0.0-7.0); Hematocrit 24.8 % (34.1-44.9); Hemoglobin 7.3 g/dL (11.2-15.7); Lymphocytes # (Auto) 1.07 K/mcL (1.50-4.80); Lymphocytes % (Auto) 17.9 % (15.5-49.0); Mean Cell Volume 96.9 fL (80.0-100.0); Mean Corpuscular HGB Conc 29.4 g/dL (31.0-36.0); Mean Platelet Volume 11.7 fL (8.8-12.5); Monocytes # (Auto) 0.51 K/mcL (0.10-0.90); Monocytes % (Auto) 8.5 % (1.0-12.0); Neutrophils % (Auto) 71.8 % (38.0-78.0); Platelet Count 65 K/mcL (140-440); RBC 2.56 M/mcL (3.59-5.38); Red Cell Distribution Width 18.7 % (11.5-14.5)
[2024-04-06] MEDS: FUROSEMIDE 40 MG/4 ML VIAL IV ONE ×4 (00:08→18:20)
[2024-04-06] MEDS: 0.9 % SODIUM CHLORIDE 1,000 ML IV SCH (00:19)
[2024-04-06 00:21] LABS: C-Reactive Protein 1.52 mg/dL (0.03-0.80)
[2024-04-06 00:38] LABS: ALT/SGPT 21 U/L (<40); AST/SGOT 19 U/L (<32); Albumin/Globulin Ratio 1.4 (1.0-2.3); Alkaline Phosphatase 69 U/L (39-117); Bilirubin,Direct 0.7 mg/dL (<0.3); Blood Urea Nitrogen 45 mg/dL (8-23); Carbon Dioxide 20 mmol/L (22-30); Chloride 97 mmol/L (96-108); Globulin 2.1 gm/dL (2.2-3.7); Glomerular Filtration Rate 46; Glucose 185 mg/dL (70-105); Lactate Dehydrogenase 266 U/L (135-225); Phosphorous 3.7 mg/dL (2.5-4.5); Potassium 4.8 mmol/L (3.3-5.1); Sodium 130 mmol/L (133-145); Triglycerides 50 mg/dL (<150); Uric Acid 8.9 mg/dL (2.5-8.0)
[2024-04-06] MEDS: 0.9 % SODIUM CHLORIDE 250 ML IV SCH (01:59)
[2024-04-06] MEDS: NOREPINEPHRINE BITARTRATE 16 MG in 0.9 % SODIUM CHLORIDE 234 ML IV PRN (01:59)
[2024-04-06] MEDS: NOREPINEPHRINE 250 ML IV ONE (02:10)
[2024-04-06 02:12] LABS: POC Calcium, Ionized 1.08 (1.16-1.32); POC Creatinine 1.4 (0.6-1.2); POC Potassium 4.7 (3.3-5.1)
[2024-04-06 06:49] LABS: Basophils # (Auto) 0.04 K/mcL (0.00-0.30); Basophils % (Auto) 0.6 % (0.0-2.0); Eosinophils # (Auto) 0.03 K/mcL (0.00-0.70); Eosinophils % (Auto) 0.5 % (0.0-7.0); Hematocrit 24.8 % (34.1-44.9); Hemoglobin 7.4 g/dL (11.2-15.7); Lymphocytes # (Auto) 0.84 K/mcL (1.50-4.80); Lymphocytes % (Auto) 13.6 % (15.5-49.0); Mean Corpuscular HGB Conc 29.8 g/dL (31.0-36.0); Mean Platelet Volume 12.5 fL (8.8-12.5); Monocytes % (Auto) 8.1 % (1.0-12.0); Neutrophils % (Auto) 76.9 % (38.0-78.0); Platelet Count 77 K/mcL (140-440); RBC 2.61 M/mcL (3.59-5.38); Red Cell Distribution Width 18.6 % (11.5-14.5); WBC 6.2 K/mcL (4.5-11.0)
[2024-04-06 07:15] LABS: ALT/SGPT 25 U/L (<40); AST/SGOT 25 U/L (<32); Albumin 3.1 gm/dL (3.2-5.2); Albumin/Globulin Ratio 1.5 (1.0-2.3); Alkaline Phosphatase 73 U/L (39-117); Bilirubin,Direct 0.7 mg/dL (<0.3); Blood Urea Nitrogen 46 mg/dL (8-23); Calcium 7.7 mg/dL (8.6-10.4); Carbon Dioxide 21 mmol/L (22-30); Chloride 97 mmol/L (96-108); Globulin 2.1 gm/dL (2.2-3.7); Glomerular Filtration Rate 41; Glucose 135 mg/dL (70-105); Lactate Dehydrogenase 264 U/L (135-225); Phosphorous 3.9 mg/dL (2.5-4.5); Potassium 4.7 mmol/L (3.3-5.1); Sodium 132 mmol/L (133-145); Triglycerides 46 mg/dL (<150); Uric Acid 9.3 mg/dL (2.5-8.0)
[2024-04-06] MEDS: ALBUMIN HUMAN 25 GM/100 ML BAG IV ONE ×2 (07:51→17:49)
[2024-04-06] MEDS: FUROSEMIDE 20 MG/2 ML VIAL IV SCH (08:01)
[2024-04-06] MEDS: NOREPINEPHRINE 250 ML IV PRN (08:44)
[2024-04-06] MEDS: MEROPENEM 1 GM in 0.9 % SODIUM CHLORIDE 50 ML IV SCH (09:17)
[2024-04-06] MEDS: CALCIUM GLUCONATE 4.65 MEQ/10 ML VIAL IV ONE (11:10)
[2024-04-06] MEDS: CALCIUM GLUCONATE 9.3 MEQ in DEXTROSE 5% IN WATER 50 ML IV ONE (11:14)
[2024-04-06] MEDS ORDERED: SODIUM CHLORIDE 154 MEQ in WATER FOR INJECTION,STERILE 961.5 ML IV SCH (13:00)
[2024-04-06 17:09] LABS: Blood Urea Nitrogen 44 mg/dL (8-23); Carbon Dioxide 21 mmol/L (22-30); Chloride 100 mmol/L (96-108); Glomerular Filtration Rate 34; Glucose 130 mg/dL (70-105); Potassium 4.7 mmol/L (3.3-5.1); Sodium 133 mmol/L (133-145)
[2024-04-06] MEDS: AMIODARONE HCL 200 MG TABLET PO SCH (17:30)
[2024-04-06] MEDS: diphenhydrAMINE 25 MG CAPSULE PO PRN (21:08)
[2024-04-07 07:02] LABS: Basophils # (Auto) 0.03 K/mcL (0.00-0.30); Basophils % (Auto) 0.4 % (0.0-2.0); Eosinophils # (Auto) 0.12 K/mcL (0.00-0.70); Eosinophils % (Auto) 1.6 % (0.0-7.0); Hematocrit 24.6 % (34.1-44.9); Hemoglobin 7.4 g/dL (11.2-15.7); Lymphocytes # (Auto) 1.55 K/mcL (1.50-4.80); Lymphocytes % (Auto) 20.9 % (15.5-49.0); Mean Cell Volume 96.1 fL (80.0-100.0); Mean Corpuscular HGB Conc 30.1 g/dL (31.0-36.0); Mean Platelet Volume 12.8 fL (8.8-12.5); Monocytes # (Auto) 0.63 K/mcL (0.10-0.90); Monocytes % (Auto) 8.5 % (1.0-12.0); Neutrophils % (Auto) 68.3 % (38.0-78.0); Platelet Count 105 K/mcL (140-440); RBC 2.56 M/mcL (3.59-5.38); Red Cell Distribution Width 18.6 % (11.5-14.5); WBC 7.4 K/mcL (4.5-11.0)
[2024-04-07 07:23] LABS: ALT/SGPT 48 U/L (<40); AST/SGOT 65 U/L (<32); Albumin 3.6 gm/dL (3.2-5.2); Albumin/Globulin Ratio 2.3 (1.0-2.3); Alkaline Phosphatase 78 U/L (39-117); Bilirubin,Direct 1.2 mg/dL (<0.3); Bilirubin,Total 1.7 mg/dL (0.1-1.0); Blood Urea Nitrogen 48 mg/dL (8-23); Carbon Dioxide 17 mmol/L (22-30); Chloride 94 mmol/L (96-108); Globulin 1.6 gm/dL (2.2-3.7); Glomerular Filtration Rate 31; Glucose 98 mg/dL (70-105); Lactate Dehydrogenase 283 U/L (135-225); Phosphorous 4.8 mg/dL (2.5-4.5); Potassium 4.7 mmol/L (3.3-5.1); Sodium 130 mmol/L (133-145); Triglycerides 48 mg/dL (<150); Uric Acid 10.3 mg/dL (2.5-8.0)
[2024-04-07] MEDS: MIDODRINE 5 MG TABLET PO SCH (12:18)
[2024-04-07] MEDS: ACETAMINOPHEN 325 MG TABLET PO PRN (23:56)
[2024-04-08 06:37] LABS: Basophils # (Auto) 0.02 K/mcL (0.00-0.30); Basophils % (Auto) 0.3 % (0.0-2.0); Eosinophils # (Auto) 0.12 K/mcL (0.00-0.70); Eosinophils % (Auto) 1.7 % (0.0-7.0); Hematocrit 24.9 % (34.1-44.9); Hemoglobin 7.4 g/dL (11.2-15.7); Lymphocytes # (Auto) 1.45 K/mcL (1.50-4.80); Mean Corpuscular HGB Conc 29.7 g/dL (31.0-36.0); Mean Platelet Volume 12.2 fL (8.8-12.5); Monocytes # (Auto) 0.58 K/mcL (0.10-0.90); Neutrophils % (Auto) 69.4 % (38.0-78.0); Platelet Count 115 K/mcL (140-440); RBC 2.65 M/mcL (3.59-5.38); Red Cell Distribution Width 18.6 % (11.5-14.5); WBC 7.2 K/mcL (4.5-11.0)
[2024-04-08 07:03] LABS: ALT/SGPT 64 U/L (<40); AST/SGOT 62 U/L (<32); Albumin 3.4 gm/dL (3.2-5.2); Albumin/Globulin Ratio 1.8 (1.0-2.3); Alkaline Phosphatase 89 U/L (39-117); Bilirubin,Total 1.4 mg/dL (0.1-1.0); Blood Urea Nitrogen 53 mg/dL (8-23); Calcium 7.7 mg/dL (8.6-10.4); Carbon Dioxide 20 mmol/L (22-30); Chloride 97 mmol/L (96-108); Globulin 1.9 gm/dL (2.2-3.7); Glomerular Filtration Rate 31; Glucose 140 mg/dL (70-105); Lactate Dehydrogenase 255 U/L (135-225); Phosphorous 4.2 mg/dL (2.5-4.5); Potassium 4.6 mmol/L (3.3-5.1); Sodium 131 mmol/L (133-145); Triglycerides 51 mg/dL (<150); Uric Acid 10.5 mg/dL (2.5-8.0)
[2024-04-09] MEDS: LORazepam 2 MG/ML VIAL IV PRN (01:35)
[2024-04-09] MEDS: LORazepam 2 MG/ML VIAL ONE (02:22)
[2024-04-09 06:32] LABS: Basophils # (Auto) 0.03 K/mcL (0.00-0.30); Basophils % (Auto) 0.5 % (0.0-2.0); Eosinophils # (Auto) 0.05 K/mcL (0.00-0.70); Eosinophils % (Auto) 0.8 % (0.0-7.0); Hematocrit 25.2 % (34.1-44.9); Hemoglobin 7.5 g/dL (11.2-15.7); Lymphocytes # (Auto) 1.18 K/mcL (1.50-4.80); Lymphocytes % (Auto) 19.3 % (15.5-49.0); Mean Corpuscular HGB Conc 29.8 g/dL (31.0-36.0); Monocytes # (Auto) 0.46 K/mcL (0.10-0.90); Monocytes % (Auto) 7.5 % (1.0-12.0); Neutrophils % (Auto) 71.7 % (38.0-78.0); Platelet Count 111 K/mcL (140-440); RBC 2.68 M/mcL (3.59-5.38); Red Cell Distribution Width 18.6 % (11.5-14.5); WBC 6.1 K/mcL (4.5-11.0)
[2024-04-09 06:47] LABS: ALT/SGPT 81 U/L (<40); AST/SGOT 80 U/L (<32); Albumin 3.5 gm/dL (3.2-5.2); Albumin/Globulin Ratio 1.8 (1.0-2.3); Alkaline Phosphatase 111 U/L (39-117); Bilirubin,Direct 0.9 mg/dL (<0.3); Bilirubin,Total 1.4 mg/dL (0.1-1.0); Blood Urea Nitrogen 56 mg/dL (8-23); Calcium 8.2 mg/dL (8.6-10.4); Carbon Dioxide 19 mmol/L (22-30); Chloride 97 mmol/L (96-108); Globulin 1.9 gm/dL (2.2-3.7); Glomerular Filtration Rate 31; Glucose 120 mg/dL (70-105); Lactate Dehydrogenase 275 U/L (135-225); Potassium 4.7 mmol/L (3.3-5.1); Sodium 132 mmol/L (133-145); Triglycerides 60 mg/dL (<150); Uric Acid 10.8 mg/dL (2.5-8.0)
[2024-04-09 09:55] LABS: Vancomycin,Random 22.8 ug/mL
[2024-04-09] MEDS: HYDROmorphone 0.5 MG/0.5 ML SYRINGE IV PRN (22:22)
[2024-04-10 07:17] LABS: Basophils # (Auto) 0.04 K/mcL (0.00-0.30); Basophils % (Auto) 0.5 % (0.0-2.0); Eosinophils # (Auto) 0.12 K/mcL (0.00-0.70); Eosinophils % (Auto) 1.5 % (0.0-7.0); Hematocrit 25.3 % (34.1-44.9); Hemoglobin 7.4 g/dL (11.2-15.7); Lymphocytes # (Auto) 2.01 K/mcL (1.50-4.80); Lymphocytes % (Auto) 25.4 % (15.5-49.0); Mean Cell Volume 95.1 fL (80.0-100.0); Mean Corpuscular HGB Conc 29.2 g/dL (31.0-36.0); Mean Platelet Volume 12.9 fL (8.8-12.5); Monocytes # (Auto) 0.59 K/mcL (0.10-0.90); Monocytes % (Auto) 7.4 % (1.0-12.0); Neutrophils % (Auto) 64.8 % (38.0-78.0); Platelet Count 126 K/mcL (140-440); RBC 2.66 M/mcL (3.59-5.38); Red Cell Distribution Width 18.9 % (11.5-14.5); WBC 7.9 K/mcL (4.5-11.0)
[2024-04-10 07:56] LABS: ALT/SGPT 121 U/L (<40); AST/SGOT 134 U/L (<32); Albumin 3.5 gm/dL (3.2-5.2); Albumin/Globulin Ratio 1.8 (1.0-2.3); Alkaline Phosphatase 127 U/L (39-117); Bilirubin,Direct 1.1 mg/dL (<0.3); Bilirubin,Total 1.5 mg/dL (0.1-1.0); Blood Urea Nitrogen 65 mg/dL (8-23); Calcium 8.3 mg/dL (8.6-10.4); Carbon Dioxide 18 mmol/L (22-30); Chloride 95 mmol/L (96-108); Globulin 1.9 gm/dL (2.2-3.7); Glomerular Filtration Rate 25; Glucose 109 mg/dL (70-105); Lactate Dehydrogenase 305 U/L (135-225); Phosphorous 4.7 mg/dL (2.5-4.5); Potassium 5.1 mmol/L (3.3-5.1); Sodium 130 mmol/L (133-145); Triglycerides 67 mg/dL (<150); Uric Acid 11.7 mg/dL (2.5-8.0)
[2024-04-10 08:01] LABS: Vancomycin,Random 20.2 ug/mL
[2024-04-11 06:42] LABS: Vancomycin,Random 19.2 ug/mL
[2024-04-11 09:45] LABS: Basophils # (Auto) 0.02 K/mcL (0.00-0.30); Basophils % (Auto) 0.3 % (0.0-2.0); Eosinophils # (Auto) 0.08 K/mcL (0.00-0.70); Eosinophils % (Auto) 1.1 % (0.0-7.0); Hematocrit 22.5 % (34.1-44.9); Hemoglobin 6.8 g/dL (11.2-15.7); Lymphocytes # (Auto) 1.71 K/mcL (1.50-4.80); Lymphocytes % (Auto) 23.2 % (15.5-49.0); Mean Cell Volume 91.8 fL (80.0-100.0); Mean Corpuscular HGB Conc 30.2 g/dL (31.0-36.0); Monocytes # (Auto) 0.57 K/mcL (0.10-0.90); Monocytes % (Auto) 7.7 % (1.0-12.0); Neutrophils % (Auto) 67.3 % (38.0-78.0); Platelet Count 111 K/mcL (140-440); RBC 2.45 M/mcL (3.59-5.38); WBC 7.4 K/mcL (4.5-11.0)
[2024-04-11 09:52] LABS: ALT/SGPT 139 U/L (<40); AST/SGOT 157 U/L (<32); Albumin 2.8 gm/dL (3.2-5.2); Albumin/Globulin Ratio 1.4 (1.0-2.3); Alkaline Phosphatase 154 U/L (39-117); Bilirubin,Total 1.7 mg/dL (0.1-1.0); Blood Urea Nitrogen 69 mg/dL (8-23); Calcium 7.4 mg/dL (8.6-10.4); Carbon Dioxide 19 mmol/L (22-30); Chloride 101 mmol/L (96-108); Glomerular Filtration Rate 24; Glucose 107 mg/dL (70-105); Potassium 4.9 mmol/L (3.3-5.1); Sodium 139 mmol/L (133-145)
[2024-04-11 09:53] LABS: Phosphorous 3.4 mg/dL (2.5-4.5)
[2024-04-11] MEDS: 0.9 % SODIUM CHLORIDE 250 ML IV PRN (11:19)
[2024-04-11] MEDS: 0.9 % SODIUM CHLORIDE 250 ML IV SCH (13:00)
[2024-04-11] MEDS ORDERED: ALBUTEROL SULFATE 2.5 MG/3 ML NEBULIZER NEB PRN (15:34)
[2024-04-11] MEDS ORDERED: ONDANSETRON 4 MG ODT TABLET SL PRN (15:34)
[2024-04-11] MEDS ORDERED: HALOPERIDOL 5 MG TABLET PO PRN (15:34)
[2024-04-11] MEDS: HYDROmorphone 1 MG/ML SYRINGE IV PRN (15:45)
[2024-04-11] MEDS: SCOPOLAMINE 1 PATCH PATCH TOPICAL SCH (16:07)
[2024-04-11] MEDS: 0.9 % SODIUM CHLORIDE 10 ML SYRINGE IV SCH (22:16)
[2024-04-12] MEDS: ONDANSETRON 4 MG/2 ML VIAL IV PRN (00:57)
[2024-04-12] MEDS: LORazepam 2 MG/ML VIAL IV PRN (01:06)
[2024-04-12] MEDS: diphenhydrAMINE 50 MG/ML VIAL IV PRN (21:05)
== END 2024-04-13 01:15 | disposition expired | DRG 871 ==
LOC: ED 13:14 → MEDSUR 20:35 → ICU 04-04 14:00 → MEDSUR 04-11 17:03
PROVIDERS: ADMIT Student in an Organized Health Care Education/Training Program; ATTEND Student in an Organized Health Care Education/Training Program